=== PATIENT | female | born 1985 | race Caucasian/White ===

== ENCOUNTER 2019-01-29 12:56 | Observation (INO) | payer SELFPAY ==
[2019-01-29 13:54] LABS: Urine Blood 2+ (NEG); Urine Glucose NEGATIVE (NEG); Urine Protein 1+ (NEG); Urine Specific Gravity 1.025 (1.005-1.030)
[2019-01-29 14:01] LABS: Urine Bacteria 20-50 /HPF (<20)
[2019-01-29 14:02] LABS: Urine Culture Reflex Order NOT NEEDED; Urine Mucus 2+ /HPF (NONE SEEN)
[2019-01-29] MEDS ORDERED: NA CHLORIDE 0.9% 1,000 ML ONE (14:32)
[2019-01-29 14:46] LABS: Absolute Lymphocytes (CBC) 2.4 K/uL (0.7-4.9); Basophils % 0.2 % (0-1.3); Hematocrit 38.2 % (36.0-45.0); Lymphocytes % 18.7 % (15.3-44.8); MPV 8.6 fL (7.6-11.3); RBC Red Blood Cell Count 4.51 M/uL (3.86-4.86)
[2019-01-29 14:55] LABS: BUN Blood Urea Nitrogen 11 mg/dL (7-18); Bicarbonate 23 mmol/L (21-32); Glucose Level 91 mg/dL (74-106); Potassium 3.8 mmol/L (3.5-5.1); Sodium Level 141 mmol/L (136-145)
[2019-01-29] MEDS ORDERED: MORPHINE 4 MG/ML SYR ONE (15:28)
--- NOTE | 2019-01-29 16:07 | EDPHYS ---
Physician Documentation [facility] Name: Kirti Peña Age: 33 yrs Sex: Female : 1985 Arrival Date: 01/29/2019 Time: 12:59 Bed 13 Private MD: ED Physician Jean Claude Montague HPI: 01/29 15:13 This 33 yrs old Female presents to ER via Ambulatory with complaints of rn Vomiting. 15:13 The patient presents to the emergency department with nausea, vomiting, abdominal pain, rn of the suprapubic area. 15:21 Onset: The symptoms/episode began/occurred today. Possible causes: unknown. The rn symptoms are aggravated by nothing. The symptoms are alleviated by nothing. Severity of symptoms: At their worst the symptoms were moderate in the emergency department the symptoms are unchanged. The patient has not experienced similar symptoms in the past. The patient has not recently seen a physician. 15:22 Reports lower abd pain, began today, + nausea and vomiting, states has had tubal rn ligation. NO trauma. No vaginal bleeding.. 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 - Social history:: Smoking status: Patient uses tobacco products, smokes one-half pack cigarettes per day. - Ebola Screening: : No symptoms or risks identified at this time. - Family history:: not pertinent. - Hospitalizations: : No recent hospitalization is reported. ROS: 15:22 Constitutional: Negative for fever, chills, and weight loss, Eyes: Negative for injury, rn pain, redness, and discharge, Neck: Negative for injury, pain, and swelling, Cardiovascular: Negative for chest pain, palpitations, and edema, Respiratory: Negative for shortness of breath, cough, wheezing, and pleuritic chest pain, Abdomen/GI: Negative for diarrhea, and constipation, : Negative for injury, bleeding, discharge, and swelling, MS/Extremity: Negative for injury and deformity, Skin: Negative for injury, rash, and discoloration, Neuro: Negative for headache, weakness, numbness, tingling, and seizure. Exam: 15:22 Constitutional: This is a well developed, well nourished patient who is awake, alert, rn appears uncomfortable Head/Face: Normocephalic, atraumatic. ENT: MMM Cardiovascular: Regular rate and rhythm. No pulse deficits. Respiratory: Lungs have equal breath sounds bilaterally, clear to auscultation. No increased work of breathing, no retractions or nasal flaring. Abdomen/GI: soft, + suprapubic and RLQ tenderness, no rebound MS/ Extremity: Pulses equal, no cyanosis. Neurovascular intact. Full, normal range of motion. Equal circumference. Neuro: Awake and alert, GCS 15, oriented to person, place, time, and situation. Cranial nerves II-XII grossly intact. Motor strength 5/5 in all extremities. Sensory grossly intact. Cerebellar exam normal. Vital Signs: 13:03 BP 124 / 75; Pulse 96; Resp 18 S; Temp 97.6(TE); Pulse Ox 98% on R/A; Weight 108.86 kg aa5 (R); Height 5 ft. 9 in. (175.26 cm) (R); Pain 9/10; 13:58 BP 112 / 70; Pulse 83; Resp 18; Pulse Ox 98% on R/A; kj1 14:58 BP 115 / 80; Pulse 77; Resp 17; Pulse Ox 99% on R/A; Pain 9/10; rb1 15:51 BP 132 / 99; Pulse 98; Resp 18; Pulse Ox 100% on R/A; kj1 16:45 BP 121 / 83; Pulse 78; Resp 19; Temp 97.9(O); Pulse Ox 96% on R/A; rb1 17:22 BP 114 / 59; Pulse 76; Resp 19; Temp 98.0(O); Pulse Ox 97% on R/A; Pain 7/10; rb1 13:03 Body Mass Index 35.44 (108.86 kg, 175.26 cm) aa5 MDM: 13:18 Patient medically screened. snw 16:05 Differential diagnosis: Nonspecific abd pain, ectopic . Data reviewed: vital rn signs, nurses notes, lab test result(s), radiologic studies, ultrasound, and as a result, I will admit patient. Counseling: I had a detailed discussion with the patient and/or guardian regarding: the historical points, exam findings, and any diagnostic results supporting the discharge/admit diagnosis, lab results, radiology results, the need for further work-up and treatment in the hospital. Response to treatment: the patient's symptoms have markedly improved after treatment, and as a result, I will admit patient. Admission orders: after a detailed discussion of the patient's condition and case, the admit orders are written by me. ED course: Consulted with Dr. Lyle \T\ 1605, will come and eval patient for ectopic . . 01/29 13:20 Order name: Urine Culture [facility] 01/29 13:20 Order name: Urine Microscopic Only; Complete Time: 14:04 w 01/29 13:48 Order name: Urine Dipstick--Ancillary (enter results); Complete Time: 14:04 bd 01/29 13:48 Order name: Urine --Ancillary (enter results); Complete Time: 14:04 01/29 14:20 Order name: CBC with Diff; Complete Time: 15:12 rn 01/29 14:20 Order name: Basic Metabolic Panel; Complete Time: 15:12 rn 01/29 13:20 Order name: Urine Test (obtain specimen); Complete Time: 13:53 [facility] 01/29 13:20 Order name: Urine Dipstick-Ancillary (obtain specimen); Complete Time: 13:53 [facility] 01/29 14:20 Order name: IV Start; Complete Time: 14:34 rn 01/29 14:20 Order name: Abo/rh Typing; Complete Time: 15:43 rn 01/29 14:20 Order name: US Transvaginal Ob; Complete Time: 16:26 rn 01/29 15:02 Order name: Quantitative Hcg; Complete Time: 15:59 rn 01/29 14:20 Order name: Labs collected and sent; Complete Time: 14:30 rn 01/29 14:20 Order name: NPO; Complete Time: 14:30 rn 01/29 16:07 Order name: NPO; Complete Time: 16:17 rn Administered Medications: 14:34 Drug: NS 0.9% 1000 ml Route: IV; Rate: 1000 ml; Site: right antecubital; ss 15:33 Drug: morphine 4 mg Route: IVP; Site: right antecubital; rb1 15:48 Follow up: Response: No adverse reaction; Pain is decreased rb1 Disposition: 01/29/19 16:07 Hospitalization ordered by Candice Lyle for Observation. Preliminary diagnosis is Ectopic . - Bed requested for Telemetry/MedSurg (Inpatient). - Status is Observation. rb1 - Condition is Stable. - Problem is new. - Symptoms have improved. UTI on Admission? No Signatures: Dispatcher [employer] EDMS Magnolia Shin, SHEET ROCK APPLICATOR-C SHEET ROCK APPLICATOR-Csnw Jean Claude Montague MD MD rn Calderon, Audri, RN RN aa5 Brittney Van RN RN ss Edwina Fernando, COMMUNICATIONS TECH COMMUNICATIONS TECH rh1 Lisa Rubio, RN RN rb1 Corrections: (The following items were deleted from the chart) 15:23 15:22 Constitutional: Negative for fever, chills, and weight loss, Eyes: Negative for rn injury, pain, redness, and discharge, Neck: Negative for injury, pain, and swelling, Cardiovascular: Negative for chest pain, palpitations, and edema, Respiratory: Negative for shortness of breath, cough, wheezing, and pleuritic chest pain, Abdomen/GI: Negative for diarrhea, and constipation, MS/Extremity: Negative for injury and deformity, Skin: Negative for injury, rash, and discoloration, Neuro: Negative for headache, weakness, numbness, tingling, and seizure, rn 16:25 16:07 Hospitalization Ordered by Candice Lyle MD for Inpatient Admission. Preliminary rn diagnosis is Ectopic . Bed requested for Telemetry/MedSurg (Inpatient). Status is Inpatient Admission. Condition is Stable. Problem is new. Symptoms have improved. UTI on Admission? No. rn 17:25 16:25 01/29/2019 16:07 Hospitalization Ordered by Candice Lyle MD for Observation. rb1 Preliminary diagnosis is Ectopic . Bed requested for Telemetry/MedSurg (Inpatient). Status is Observation. Condition is Stable. Problem is new. Symptoms have improved. UTI on Admission? No. rn
--- NOTE | 2019-01-29 16:07 | ER ---
Nurse's Notes [facility] Name: Kirti Peña Age: 33 yrs Sex: Female : 1985 Arrival Date: 01/29/2019 Time: 12:59 Bed 13 Private MD: Diagnosis: Ectopic Presentation: 01/29 13:02 Presenting complaint: Patient states: abdominal pain and vomiting that began yesterday. aa5 Pt reports last void was "early this morning". Pt states "It hurts to bad to pee". Transition of care: patient was not received from another setting of care. Onset of symptoms was January 29, 2019. Risk Assessment: Do you want to hurt yourself or someone else? Patient reports no desire to harm self or others. Initial Sepsis Screen: Does the patient meet any 2 criteria? No. Patient's initial sepsis screen is negative. Does the patient have a suspected source of infection? No. Patient's initial sepsis screen is negative. Care prior to arrival: None. 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 - Social history:: Smoking status: Patient uses tobacco products, smokes one-half pack cigarettes per day. - Ebola Screening: : No symptoms or risks identified at this time. - Family history:: not pertinent. - Hospitalizations: : No recent hospitalization is reported. Screenin:10 Abuse screen: Denies threats or abuse. Nutritional screening: No deficits noted. rb1 Tuberculosis screening: No symptoms or risk factors identified. Fall Risk None identified. Assessment: 13:10 General: Appears in no apparent distress. comfortable, Behavior is calm, cooperative, rb1 Denies fever. Pain: Complains of pain in suprapubic area, right lower quadrant and left lower quadrant Pain currently is 9 out of 10 on a pain scale. Pain began 0100 this morning. Neuro: Level of Consciousness is awake, alert, obeys commands, Oriented to person, place, time, situation. Cardiovascular: Capillary refill < 3 seconds is brisk in bilateral fingers. Respiratory: Airway is patent Respiratory effort is even, unlabored, Respiratory pattern is regular, symmetrical. GI: Abdomen is pt. reports feeling bloated and says abdomen is distended. Reports nausea, vomiting. : No signs and/or symptoms were reported regarding the genitourinary system. Derm: Skin is pink, warm \\T\\ dry. 14:05 Reassessment: Patient appears in no apparent distress at this time. No changes from rb1 previously documented assessment. 15:00 Reassessment: Pt. is crying and feeling anxious about her test being rb1 positive. Family is at pt. bedside. US is at bedside. 15:36 Reassessment: Patient appears in no apparent distress at this time. Patient and/or rb1 family updated on plan of care and expected duration. Pain level reassessed. Patient is alert, oriented x 3, equal unlabored respirations, skin warm/dry/pink. Family at bedside. 16:35 Reassessment: Patient appears in no apparent distress at this time. No changes from rb1 previously documented assessment. 17:22 Reassessment: Patient appears in no apparent distress at this time. Patient and/or rb1 family updated on plan of care and expected duration. Pain level reassessed. Patient is alert, oriented x 3, equal unlabored respirations, skin warm/dry/pink. Gave report to Ephraim DelcidOcular Pathologist. Vital Signs: 13:03 BP 124 / 75; Pulse 96; Resp 18 S; Temp 97.6(TE); Pulse Ox 98% on R/A; Weight 108.86 kg aa5 (R); Height 5 ft. 9 in. (175.26 cm) (R); Pain 9/10; 13:58 BP 112 / 70; Pulse 83; Resp 18; Pulse Ox 98% on R/A; kj1 14:58 BP 115 / 80; Pulse 77; Resp 17; Pulse Ox 99% on R/A; Pain 9/10; rb1 15:51 BP 132 / 99; Pulse 98; Resp 18; Pulse Ox 100% on R/A; kj1 16:45 BP 121 / 83; Pulse 78; Resp 19; Temp 97.9(O); Pulse Ox 96% on R/A; rb1 17:22 BP 114 / 59; Pulse 76; Resp 19; Temp 98.0(O); Pulse Ox 97% on R/A; Pain 7/10; rb1 13:03 Body Mass Index 35.44 (108.86 kg, 175.26 cm) aa5 ED Course: 12:59 Patient arrived in ED. as 13:01 Arm band placed on. aa5 13:02 Triage completed. aa5 13:10 Patient has correct armband on for positive identification. Bed in low position. Call rb1 light in reach. Side rails up X 1. Pulse ox on. NIBP on. Warm blanket given. 13:14 Lisa Rubio, RN is Primary Nurse. rb1 13:18 Magnolia Shin FNP-C is PHCP. snw 13:18 Jean Claude Montague MD is Attending Physician. snw 14:03 PHCP role handed off by Magnolia Shin FNP-C rh1 14:03 Edwina Fernando NP is PHCP. rh1 14:29 Inserted saline lock: 20 gauge in right antecubital area, using aseptic technique. ss Blood collected. 15:19 US Transvaginal Ob In Process Unspecified. EDMS 15:54 Ultrasound completed. Patient tolerated well. Notified ED Physician elida. sg3 16:06 Candice Lyle MD is Hospitalizing Provider. rn 17:25 No provider procedures requiring assistance completed. Patient admitted, IV remains in rb1 place. Administered Medications: 14:34 Drug: NS 0.9% 1000 ml Route: IV; Rate: 1000 ml; Site: right antecubital; ss 15:33 Drug: morphine 4 mg Route: IVP; Site: right antecubital; rb1 15:48 Follow up: Response: No adverse reaction; Pain is decreased rb1 Outcome: 16:07 Decision to Hospitalize by Provider. rn 17:25 Admitted to OR accompanied by nurse, via wheelchair, with chart. rb1 17:25 Condition: stable 17:25 Instructed on the need for admit. 17:25 Patient left the ED. rb1 Signatures: Dispatcher [employer] EDMS Magnolia Shin FNP-C ROOF FOREMAN-CsnClarisse Collins as Jean Claude Montague MD MD rn Calderon, Audri, RN RN aa5 Brittney Van RN RN ss Edwina Fernando NP BISQUE PLACER rh1 Lisa Rubio, VICKEY HURD [facility] Ayla Taylor sg3 Princess Moran kj1 Corrections: (The following items were deleted from the chart) 15:08 15:00 Reassessment: Pt. is crying and feeling anxious about her test being rb1 positive. rb1
--- NOTE | 2019-01-29 16:19 | RAD REPORT ---
EXAM DESCRIPTION: US - Transvaginal OB - 01/29/2019 3:41 pm CLINICAL HISTORY: s/p tubal ligation, + preg test, rule out ectopic beta HCG [id number] COMPARISON: None. TECHNIQUE: Endovaginal sonography was performed. Exam was limited. Patient was in pain which limited optimal positioning FINDINGS: No intrauterine gestational sac or sac remnant identifiable. No hematoma or other focal fi nding within the endometrial cavity. No blood or fluid in the cul de sac. Left ovary was not identifiable. No left adnexal mass seen. Within or adjacent to the right ovary there is a 2.4 x 2.5 x 2.6 centimeter mass. There is an irregul ar central cystic structure. Within this larger cystic structure is a small oval cyst that has the ap pearance of the yolk sac. Adjacent to the yolk sac is a small linear echogenic focus having the appea keesha of an early pole. Doppler evaluation shows prominent enhancing vasculature around the per iphery of this 2.6 centimeter right ovarian or paraovarian mass. Doppler evaluation could not identif y cardiac activity within the suspected pole. No fallopian tube dilatation. IMPRESSION: As detailed above, there is a 2.6 centimeter right ovarian or paraovarian mass showing c haracteristics of an ectopic . No blood or fluid identifiable in the right adnexa or cul-de-sac. No intrauterine gestational sac or sac remnant seen. Left ovary was obscured by bowel. Overall both adnexae were limited in assessment due to patient pain that limited her ability to cooperate with the exam
[2019-01-29] MEDS ORDERED: SUCCINYLCHOLINE 20 MG/ML (10 ML) IV ONE (17:41)
[2019-01-29] MEDS ORDERED: NA CIT/CITRIC AC 30 ML ORAL UDC ONE (17:43)
[2019-01-29] MEDS ORDERED: Ringers Lactate 1,000 ML IV ONE ×2 (17:43→19:51)
--- NOTE | 2019-01-29 17:54 | P.OBGYNHP ---
Certification for Inpatient Patient admitted to: Observation With expected LOS: <2 Midnights Patient will require the following post-hospital care: None Practitioner: I am a practitioner with admitting privileges, knowledge of patient current condition, hospital course, and medical plan of care. Services: Services provided to patient in accordance with Admission requirements found in Title 42 Section 412.3 of the Code of Federal Regulations Patient History Date of Service: 01/31/19 Reason for admission: Ruptured ectopic History of Present Illness: Patient is a 33 y/o LMP about one month ago who presents to the ED with sudden onset of pain and a missed menses. She states that she began feeling very nauseated this morning and then threw up a bile like substance which made her feel she may be since that is how she felt with her past pregnancies. Patient states then the pain began mostly in the suprapubic and right lower quadrant area. Patient states this is what caused her to present to the ED. She has h/o 3 prior sections and during her last c/s she had a bilateral tubal ligation done as well. 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 -: section x3 and tubal ligation -: tonsillectomy - Family History Family History: Reviewed- Non-Contributory - Social History Smoking Status: Current every day smoker Alcohol use: No Review of Systems 10-point ROS is otherwise unremarkable Physical Examination - Vital Signs Temperature: 98 F Blood Pressure: 114/59 Pulse: 76 Respirations: 18 Pulse Ox (%): 97 - General General: Alert, Oriented x3 HEENT: Atraumatic Neck: Supple Respiratory: Normal air movement Cardiovascular: No edema, Normal pulses Musculoskeletal: No clubbing, No swelling Integumentary: No breakdown, No significant lesion Neurological: Normal gait, Normal speech - Female Pelvic External genitalia: Normal, No lesions, No masses Vagina: Normal, [place], Moist Cervix: Normal, Other (very high in vaginal vault) Uterus: Gravid (8 weeks size), Anteverted Adnexa: Unable to evaluate Laboratory Data (last 24 hrs) 01/29/19 14:27: Sodium 141, Potassium 3.8, BUN 11, Creatinine 0.70, Glucose 91 01/29/19 14:27: WBC 12.9 H, Hgb 13.0, Hct 38.2, Plt Count 290 Laboratory Tests 01/29/19 14:27 Beta HCG, Quant 70077 H Assessment and Plan - Plan Patient is a 33 y/o LMP about one month ago who presents with ruptured ectopic . Patient will be taken to the operating room for laparoscopic treatment of ectopic . Patient understand risks. She has consented to procedure. Discussed with patient the possibility of needed laparotomy especially with her h/o 3 prior sections. Discussed with patient that if it is possible I will perform bilateral salpingectomy. Patient agrees. Discharge Plan: Home Plan to discharge in: 24 Hours - Advance Directives Does patient have a Living Will: No Does patient have a Durable POA for Healthcare: No
[2019-01-29] MEDS ORDERED: IBUPROFEN 200 MG TAB PO PRN (19:53)
[2019-01-29] MEDS ORDERED: ONDANSETRON 4 MG (ODT) TAB PO PRN (19:53)
[2019-01-29] MEDS ORDERED: ACETAMINOPHEN 500 MG TAB PO PRN (19:53)
--- NOTE | 2019-01-29 19:54 | P.OP ---
Scheduling Manager: Gail Barrios Preoperative diagnosis: Ruptured ectopic Postoperative diagnosis: same and extensive adhesions Primary procedure: Diagnostic laparoscopy, evacuation of hemoperitoneum, right salpingectomy Anesthesia: General Estimated blood loss: Minimal, 800 cc of blood within the abdominal cavity present from ectopic Specimen: Right fallopian tube Findings: large right ectopic , extensive abdominal adhesions Operative Technique: On bimanual exam, the patient has an average size anteverted uterus, it is freely mobile. Laparoscopically, the patient had numerous omental adhesions to the vesicouterine peritoneum on the left side of the uterus. . There was a copious amount of blood in the abdomen approximately 800 cc of clotted and unclotted blood. There was an apparent rupture and bleeding ectopic in the isthmus portion of the right fallopian tube. PROCEDURE: After an informed consent was obtained, the patient was taken to the operating room and the general anesthetic was administered. She was then positioned in the dorsal lithotomy position and prepped and draped in the normal sterile fashion. Once the anesthetic was found to be adequate, a bimanual exam was performed under anesthetic. A weighted speculum was then placed in the vagina. The interior wall of vagina elevated with the uterine sound and the anterior lip of the cervix was grasped with the vulsellum tenaculum. At this point, the uterine manipulator was placed in the cervix and attached to the anterior cervix and vulsellum tenaculum and weighted speculum were removed. Next, attention was then turned to the abdomen. Next, a 2 cm incision was made immediately inferior to umbilicus. The superior aspect of the umbilicus was grasped with a towel clamp and a Veress needle was inserted through this incision. Next, a syringe was used to inject normal saline into the Veress needle. The normal saline was seen to drop freely, so a Veress needle was connected to the CO2 gas which was started at its lowest setting. The gas was seen to flow freely with normal resistance, so the CO2 gas was advanced to a higher setting. The abdomen was insufflated to an adequate distension. Once an adequate distention was reached, the CO2 gas was disconnected. The Veress needle was removed and a size #11 step trocar was placed. The introducer was removed and the trocar was connected to the CO2 gas and a camera was inserted. Next, a 1 cm incision was made in the right abdominal side wall after transilluminating with the camera. A Veress needle and a step sheath were inserted through this incision. Next, the Veress needle was removed and a size #5 trocar was inserted under direct visualization. Next a size #5 port was placed approximately five fingerbreadths to the left of the umbilicus in a similar fashion. A size #5 port was placed in a similar fashion approximately six fingerbreadths to the right of the umbilicus and also under direct visualization. Next, the suction healthcare network consultant was used to copiously irrigate the abdomen. Approximate total of 1 liter of irrigation was used and the majority of all blood clots and free blood was removed from the abdomen. Once the majority of blood was cleaned from the abdomen, the ectopic was easily identified and the end of the fallopian tube was grasped with the grasper from the left upper quadrant and the LigaSure device was then inserted through the right upper quadrant with # 12 port. Three bites with the LigaSure device were used to transect the mesosalpinx inferior to the fallopian tube and then transect the fallopian tube proximal to the ectopic . An EndoCatch bag was then placed to the size #12 port and this was used to remove the right fallopian tube and ectopic . This was then sent to the pathology. Next, the right mesosalpinx and remains of the fallopian tube were examined again and they were seemed to be hemostatic. The abdomen was further irrigated. The liver was examined and appeared to be within normal limits. At this point, the two size #5 ports and a size #12 port were removed under direct visualization. The camera was then removed. The CO2 gas was disconnected and the abdomen was desufflated. The introducer was then replaced in a size #11 port and the whole port and introducer was removed as a single unit. All laparoscopic incisions were closed with a #4-0 monocryl in a subcuticular interrupted fashion. Dermabond was placed. At the end of the procedure, the uterine manipulator was removed from the cervix and the patient was taken to Recovery in stable condition. The patient tolerated the procedure well. Sponge, lap, and needle counts were correct x2. Complications: None Transferred to: Recovery Room Condition: Good
[2019-01-29] MEDS ORDERED: MEPERIDINE HCL 25 MG/0.5 ML ONE (20:00)
[2019-01-29] MEDS ORDERED: ONDANSETRON 4 MG/2 ML VIAL ONE (20:04)
[2019-01-29] MEDS ORDERED: KETOROLAC 30 MG/ML INJ IV PRN (20:09)
[2019-01-29] MEDS: HYDROMORPHONE HCL 1 MG/ML INJ ONE ×2 (20:13→20:27)
[2019-01-29 20:44] VITALS: O2SAT 95
[2019-01-29 21:48] VITALS: BMI 35.4
[2019-01-30] MEDS: Oxycodone HCl/Acetaminophen 1 TAB TAB PO PRN ×2 (04:33→09:57)
[2019-01-30 06:21] LABS: Absolute Lymphocytes (CBC) 0.9 K/uL (0.7-4.9); Basophils % 0.1 % (0-1.3); Hematocrit 31.3 % (36.0-45.0); Lymphocytes % 6.9 % (15.3-44.8); MPV 8.8 fL (7.6-11.3); RBC Red Blood Cell Count 3.71 M/uL (3.86-4.86)
[2019-01-30 07:25] LABS: Blood Morphology Comment NOT SEEN (NOT SEEN); Platelet Estimate ADEQ
--- NOTE | 2019-01-30 10:39 | P.DS ---
Admission Date: 01/29/19 Discharge Date: 01/30/19 Disposition: ROUTINE DISCHARGE Discharge Condition: GOOD Reason for Admission: Ruptured ectopic Brief History of Present Illness: Patient is a 33 y/o LMP about one month ago who presents to the ED with sudden onset of pain and a missed menses. She states that she began feeling very nauseated this morning and then threw up a bile like substance which made her feel she may be since that is how she felt with her past pregnancies. Patient states then the pain began mostly in the suprapubic and right lower quadrant area. Patient states this is what caused her to present to the ED. She has h/o 3 prior sections and during her last c/s she had a bilateral tubal ligation done as well. Hospital Course: Patient did well following surgery. She denies pain. She is ambulating. She is tolerating a regular diet. She is not vomiting any longer. She states she feels much better. Vital Signs/Physical Exam: Temp Pulse Resp BP Pulse Ox 97.4 F 53 18 95/49 L 97 01/30/19 07:30 01/30/19 07:30 01/30/19 07:30 01/30/19 07:30 01/30/19 04:33 General: Alert, In no apparent distress, Oriented x3 HEENT: Atraumatic Neck: Supple Respiratory: Normal air movement Gastrointestinal: Soft and benign, Rebound (Incision sites are closed with dermabond and healing well.) Musculoskeletal: No clubbing, No swelling Integumentary: No rashes, No breakdown Neurological: Normal gait, Normal speech Laboratory Data at Discharge: WBC 13.4 K/uL (4.3-10.9) H 01/30/19 05:45 Hgb 10.7 g/dL (12.0-15.0) L 01/30/19 05:45 Hct 31.3 % (36.0-45.0) L D 01/30/19 05:45 Plt Count 254 K/uL (152-406) 01/30/19 05:45 Sodium 141 mmol/L (136-145) 01/29/19 14:27 Potassium 3.8 mmol/L (3.5-5.1) 01/29/19 14:27 BUN 11 mg/dL (7-18) 01/29/19 14:27 Creatinine 0.70 mg/dL (0.55-1.3) 01/29/19 14:27 Glucose 91 mg/dL (74-106) 01/29/19 14:27 Diet: Regular Activity: Non-weight bearing
[2019-01-31 11:38] VITALS: BP 114/59; TEMP 98
== END 2019-01-30 10:30 | disposition home or self-care (01) ==
LOC: ER 12:56 → ERHOLD 16:46 → 2ND-WC 19:33
PROVIDERS: ADMIT Student in an Organized Health Care Education/Training Program; ATTEND Student in an Organized Health Care Education/Training Program
PROC: 0UT54ZZ Resection of Right Fallopian Tube, Percutaneous Endoscopic Approach (ICD-10-PCS; 2019-01-29)
PROC: 10T24ZZ Resection of Products of Conception, Ectopic, Percutaneous Endoscopic Approach (ICD-10-PCS; principal; 2019-01-29 17:30)
DX: O00.90 Unspecified ectopic pregnancy without intrauterine pregnancy (principal); K66.0 Peritoneal adhesions (postprocedural) (postinfection)
CPT/HCPCS: 36415; 76817; 80048; 81003; 81015; 81025; 84702; 85025; 86900; 86901; 87086; 87088; 88305; 96374; 99285; G0378; J0330; J1170; J2175; J2405; J7030

== ENCOUNTER 2019-02-18 11:00 | Emergency (ER) | payer SELFPAY ==
[2019-02-18 11:39] LABS: Urine Blood NEGATIVE (NEG); Urine Glucose NEGATIVE (NEG); Urine Protein NEGATIVE (NEG); Urine pH 7.5 (5.0-7.0)
[2019-02-18 11:45] LABS: Absolute Lymphocytes (CBC) 2.8 K/uL (0.7-4.9); Basophils % 0.6 % (0-1.3); Hematocrit 36.8 % (36.0-45.0); Lymphocytes % 28.5 % (15.3-44.8); MPV 8.4 fL (7.6-11.3); RBC Red Blood Cell Count 4.37 M/uL (3.86-4.86)
[2019-02-18 11:51] LABS: BUN Blood Urea Nitrogen 12 mg/dL (7-18); Bicarbonate 27 mmol/L (21-32); Glucose Level 89 mg/dL (74-106); Sodium Level 142 mmol/L (136-145)
--- NOTE | 2019-02-18 12:23 | RAD REPORT ---
EXAM DESCRIPTION: CT - Abdomen Pelvis W Contrast - 02/18/2019 12:10 pm CLINICAL HISTORY: ABD PAINpatient detailed acute onset pain following a lifting injury. Patient had ectopic surgery 3 weeks earlier COMPARISON: None. TECHNIQUE: Biphasic, helical CT imaging of the abdomen and pelvis was performed following 100 ml non -ionic IV contrast. No oral contrast. All CT scans are performed using dose optimization technique as appropriate and may include automated exposure control or mA/KV adjustment according to patient size. FINDINGS: No suspicious findings in the lung bases. The liver, spleen, and pancreas show no suspicious findings. Gallbladder and biliary tree are also wi thout suspicious finding. Symmetric renal function is seen with no hydronephrosis or suspicious renal mass. No pyelonephritis o r acute parenchymal process. No adrenal abnormalities. Patient has a moderate size hiatal hernia only partially imaged on this study. Approximately 25% of t he stomach is intrathoracic. No acute bowel finding seen. No free fluid or pneumatosis. No focal infl ammatory stranding. No bulky lymphadenopathy. No omental thickening. No suspicious bony findings. No uterine or ovarian suspicious finding. No fallopian tube dilatation. Mostly contracted urinary makenna dder shows no suspicious finding. Within the peritoneal and retroperitoneal spaces of the pelvis ther e is no hematoma or mass. No abscess or other finding related to the ectopic surgery. The p atient has anterior abdominal wall is intact. Patient does have a few punctate areas of free air. The se are not associated with any active process and believed to be small remnant foci from the surgery. These are not regarded as suspicious. No abdominal wall hernia or hematoma seen. IMPRESSION: No abdominal wall hernia or hematoma. No abnormal pelvic finding. No abnormality seen to explain the patient's acute onset suprapubic pain.
--- NOTE | 2019-02-18 12:34 | ER ---
Nurse's Notes [facility] Name: Kirti Peña Age: 33 yrs Sex: Female : 1985 Arrival Date: 02/18/2019 Time: 11:04 Bed 13 Private MD: None, None Diagnosis: Lower abdominal pain, unspecified Presentation: 02/18 11:07 Presenting complaint: Patient states: "I've been having some pain. I was here 3 weeks aj1 ago and had an ectopic and I had to have emergency surgery, I lifted something heavy up today and I felt a pain and i just wanted to make sure I didn't mess anything up" Denies vaginal bleeding, discharge. Reports suprapubic pain. Denies fever. Denies urinary symptoms. Transition of care: patient was not received from another setting of care. Onset of symptoms was February 18, 2019. Risk Assessment: Do you want to hurt yourself or someone else? Patient reports no desire to harm self or others. Initial Sepsis Screen: Does the patient meet any 2 criteria? No. Patient's initial sepsis screen is negative. Does the patient have a suspected source of infection? No. Patient's initial sepsis screen is negative. Care prior to arrival: None. 11:07 Method Of Arrival: Ambulatory aj1 11:07 Acuity: FRANCO 3 aj1 Triage Assessment: 11:09 General: Appears in no apparent distress. uncomfortable, Behavior is calm, cooperative, aj1 appropriate for age. Pain: Complains of pain in suprapubic area Pain currently is 8 out of 10 on a pain scale. Neuro: Level of Consciousness is awake, alert, obeys commands. Cardiovascular: Patient's skin is warm and dry. Respiratory: Airway is patent Respiratory effort is even, unlabored, Respiratory pattern is regular, symmetrical. GI: Reports lower abdominal pain. 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 - Social history:: Smoking status: Patient uses tobacco products, smokes one-half pack cigarettes per day. - Ebola Screening: : Patient denies travel to an Ebola-affected area in the 21 days before illness onset. Screenin:30 Abuse screen: Denies threats or abuse. Denies injuries from another. Nutritional jl7 screening: No deficits noted. Tuberculosis screening: No symptoms or risk factors identified. Fall Risk IV access (20 points). Total Chew Fall Scale indicates No Risk (0-24 pts). Assessment: 11:30 General: Appears in no apparent distress. uncomfortable, Behavior is calm, cooperative, jl7 appropriate for age. Pain: Complains of pain in suprapubic area Pain does not radiate. Pain currently is 8 out of 10 on a pain scale. Quality of pain is described as sharp, shooting, Is intermittent. Neuro: Level of Consciousness is awake, alert, obeys commands, Oriented to person, place, time, situation. Cardiovascular: Patient's skin is warm and dry. Respiratory: Airway is patent Respiratory effort is even, unlabored, Respiratory pattern is regular, symmetrical. GI: Abdomen is round non-distended, Bowel sounds present X 4 quads. Abd is soft and non tender Patient currently denies diarrhea, nausea, vomiting. : No signs and/or symptoms were reported regarding the genitourinary system. EENT: No signs and/or symptoms were reported regarding the EENT system. Derm: Skin is pink, warm \\T\\ dry. 12:30 Reassessment: Patient appears in no apparent distress at this time. No changes from jl7 previously documented assessment. Patient and/or family updated on plan of care and expected duration. Pain level reassessed. Patient is alert, oriented x 3, equal unlabored respirations, skin warm/dry/pink. Vital Signs: 11:09 BP 129 / 62; Pulse 96; Resp 18; Temp 97.9; Pulse Ox 98% on R/A; Weight 111.58 kg (R); aj1 Height 5 ft. 9 in. (175.26 cm) (R); Pain 8/10; 12:30 BP 128 / 63; Pulse 95; Resp 16 S; Pulse Ox 100% on R/A; jl7 11:09 Body Mass Index 36.33 (111.58 kg, 175.26 cm) aj1 ED Course: 11:04 Patient arrived in ED. mr 11:05 None, None is Private Physician. mr 11:05 [facility]C [facility]. kb 11:05 Jean Claude Montague MD is Attending Physician. kb 11:09 Triage completed. aj1 11:09 Arm band placed on Patient placed in an exam room. aj1 11:21 Omer Bullard, RN is Primary Nurse. jl7 11:30 Patient has correct armband on for positive identification. Bed in low position. Call jl7 light in reach. Side rails up X 1. Pulse ox on. NIBP on. 11:30 Initial lab(s) drawn, by me, sent to lab. Inserted saline lock: 22 gauge in right jl7 antecubital area, using aseptic technique. Blood collected. 11:34 Urine collected: clean catch specimen, clear. jl7 12:14 CT Abd/Pelvis - IV Contrast Only In Process Unspecified. EDMS 12:45 No provider procedures requiring assistance completed. IV discontinued, intact, jl7 bleeding controlled, No redness/swelling at site. Pressure dressing applied. Administered Medications: No medications were administered Outcome: 12:34 Discharge ordered by . kb 12:45 Discharged to home ambulatory, with family. jl7 12:45 Condition: stable 12:45 Discharge instructions given to patient, family, Instructed on discharge instructions, follow up and referral plans. Demonstrated understanding of instructions, follow-up care. 12:45 Patient left the ED. jl7 Signatures: Dispatcher [employer] EDMS Dana Moran FNP-C FNP-Vickie Alvarenga, RN RN Glenny Pack mr Omer Bullard, RN RN jl7
--- NOTE | 2019-02-18 12:35 | EDPHYS ---
Physician Documentation [facility] Name: Kirti Peña Age: 33 yrs Sex: Female : 1985 Arrival Date: 02/18/2019 Time: 11:04 Bed 13 Private MD: None, None ED Physician Jean Claude Montague HPI: 02/18 11:37 This 33 yrs old Female presents to ER via Ambulatory with complaints of kb Abdominal Pain. 11:37 The patient presents with abdominal pain in the lower abdomen. Onset: The kb symptoms/episode began/occurred this morning. The symptoms do not radiate. Associated signs and symptoms: none. The symptoms are described as constant. Modifying factors: The symptoms are alleviated by nothing, the symptoms are aggravated by nothing. Severity of pain: At its worst the pain was moderate in the emergency department the pain is unchanged. The patient has not experienced similar symptoms in the past. The patient has been recently seen by a physician:. Pt reports suprapubic and RLQ pain that started after lifting a heavy box this morning. Recent ectopic on the right with surgical intervention. . 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 - Social history:: Smoking status: Patient uses tobacco products, smokes one-half pack cigarettes per day. - Ebola Screening: : Patient denies travel to an Ebola-affected area in the 21 days before illness onset. ROS: 11:34 Constitutional: Negative for fever, chills, and weight loss, ENT: Negative for injury, kb pain, and discharge, Neck: Negative for injury, pain, and swelling, Cardiovascular: Negative for chest pain, palpitations, and edema, Respiratory: Negative for shortness of breath, cough, wheezing, and pleuritic chest pain, Back: Negative for injury and pain, : Negative for injury, bleeding, discharge, and swelling, MS/Extremity: Negative for injury and deformity, Skin: Negative for injury, rash, and discoloration, Neuro: Negative for headache, weakness, numbness, tingling, and seizure. 11:34 Abdomen/GI: Positive for abdominal pain. Exam: 11:35 Constitutional: This is a well developed, well nourished patient who is awake, alert, kb and in no acute distress. Head/Face: Normocephalic, atraumatic. ENT: Nares patent. No nasal discharge, no septal abnormalities noted. Tympanic membranes are normal and external auditory canals are clear. Oropharynx with no redness, swelling, or masses, exudates, or evidence of obstruction, uvula midline. Mucous membranes moist. Neck: Trachea midline, no thyromegaly or masses palpated, and no cervical lymphadenopathy. Supple, full range of motion without nuchal rigidity, or vertebral point tenderness. No Meningismus. Chest/axilla: Normal chest wall appearance and motion. Nontender with no deformity. No lesions are appreciated. Cardiovascular: Regular rate and rhythm with a normal S1 and S2. No gallops, murmurs, or rubs. Normal PMI, no JVD. No pulse deficits. Respiratory: Lungs have equal breath sounds bilaterally, clear to auscultation and percussion. No rales, rhonchi or wheezes noted. No increased work of breathing, no retractions or nasal flaring. Skin: Warm, dry with normal turgor. Normal color with no rashes, no lesions, and no evidence of cellulitis. MS/ Extremity: Pulses equal, no cyanosis. Neurovascular intact. Full, normal range of motion. Neuro: Awake and alert, GCS 15, oriented to person, place, time, and situation. Cranial nerves II-XII grossly intact. Motor strength 5/5 in all extremities. Sensory grossly intact. Cerebellar exam normal. Normal gait. 11:35 Abdomen/GI: Inspection: abdomen appears normal, healing surgical incisions to RLQ and umbilicus, Bowel sounds: normal, in all quadrants, Palpation: soft, in all quadrants, moderate abdominal tenderness, in the suprapubic area and right lower quadrant. Vital Signs: 11:09 BP 129 / 62; Pulse 96; Resp 18; Temp 97.9; Pulse Ox 98% on R/A; Weight 111.58 kg (R); aj1 Height 5 ft. 9 in. (175.26 cm) (R); Pain 8/10; 12:30 BP 128 / 63; Pulse 95; Resp 16 S; Pulse Ox 100% on R/A; jl7 11:09 Body Mass Index 36.33 (111.58 kg, 175.26 cm) aj1 MDM: 11:11 Patient medically screened. kb 11:34 Data reviewed: vital signs, nurses notes. Data interpreted: Pulse oximetry: on room air kb is 98 %. Interpretation: normal. 12:33 Counseling: I had a detailed discussion with the patient and/or guardian regarding: the kb historical points, exam findings, and any diagnostic results supporting the discharge/admit diagnosis, lab results, radiology results, the need for outpatient follow up, an OB/Gyne specialist, to return to the emergency department if symptoms worsen or persist or if there are any questions or concerns that arise at home. 02/18 11:14 Order name: Basic Metabolic Panel; Complete Time: 11:52 kb 02/18 11:14 Order name: CBC with Diff; Complete Time: 12:02 kb 02/18 11:19 Order name: Quantitative Hcg; Complete Time: 11:59 eb 02/18 11:27 Order name: Urine Dipstick--Ancillary (enter results); Complete Time: 11:41 eb 02/18 11:27 Order name: Urine --Ancillary (enter results); Complete Time: 11:41 eb 02/18 12:00 Order name: CT Abd/Pelvis - IV Contrast Only; Complete Time: 12:33 kb 02/18 11:14 Order name: IV Saline Lock; Complete Time: 11:33 kb 02/18 11:14 Order name: Labs collected and sent; Complete Time: 11:33 kb 02/18 11:14 Order name: Urine Dipstick-Ancillary (obtain specimen); Complete Time: 11:33 kb 02/18 11:14 Order name: Urine Test (obtain specimen); Complete Time: 11:33 kb Administered Medications: No medications were administered Disposition: 18:29 Co-signature as Attending Physician, Jean Claude Montague MD. rn Disposition: 02/18/19 12:34 Discharged to Home. Impression: Lower abdominal pain, unspecified. - Condition is Stable. - Discharge Instructions: Abdominal Pain, Adult, [id number]. - Medication Reconciliation Form, Thank You Letter, Antibiotic Education, Prescription Opioid Use, Work release form form. - Follow up: Emergency Department; When: As needed; Reason: Worsening of condition. Follow up: Private Physician; When: 2 - 3 days; Reason: Recheck today's complaints, Continuance of care, Re-evaluation by your physician. Signatures: Dispatcher [employer] Dana Branch, DILIA HUDSONP-Vickie Alvarenga, RN RN aj1 Jean Claude Montague MD MD rn Leal, Jahala, RN RN jl7 Corrections: (The following items were deleted from the chart) 11:37 11:35 Abdomen/GI: Inspection: abdomen appears normal, Bowel sounds: normal, in all kb quadrants, Palpation: soft, in all quadrants, moderate abdominal tenderness, in the suprapubic area and right lower quadrant, kb 12:45 12:34 02/18/2019 12:34 Discharged to Home. Impression: Lower abdominal pain, jl7 unspecified. Condition is Stable. Forms are Medication Reconciliation Form, Thank You Letter, Antibiotic Education, Prescription Opioid Use. Follow up: Emergency Department; When: As needed; Reason: Worsening of condition. Follow up: Private Physician; When: 2 - 3 days; Reason: Recheck today's complaints, Continuance of care, Re-evaluation by your physician. kb
[2019-02-18 13:01] VITALS: TEMP 97.9
[2019-02-18 13:03] VITALS: BP 128/63; O2SAT 100
== END 2019-02-18 12:45 | disposition home or self-care (01) ==
LOC: ER 11:00
DX: R10.31 Right lower quadrant pain (principal); F17.210 Nicotine dependence, cigarettes, uncomplicated; Z88.0 Allergy status to penicillin
CPT/HCPCS: 36415; 74177; 80048; 81003; 81025; 84702; 85025; 99284; Q9967

== ENCOUNTER 2019-11-09 11:45 | Emergency (ER) | payer SELFPAY, OTHER ==
--- OUTSIDE RECORDS SUMMARY | 2019-11-09 11:48 | XMS REPORT | Continuity of Care Document ---
:1985 Author Organization [facility] t Address [address] [place] [place] [address] Care Team Providers Name Role Phone Unavailable Unavailable Unavailable Problems This patient has no known problems. Allergies, Adverse Reactions, Alerts This patient has no known allergies or adverse reactions. Medications This patient has no known medications. Procedures This patient has no known procedures. Results This patient has no known results.
[2019-11-09] MEDS ORDERED: ONDANSETRON 4 MG (ODT) TAB ONE (14:26)
[2019-11-09 15:10] LABS: Urine Blood NEGATIVE (NEG); Urine Glucose NEGATIVE (NEG); Urine Protein NEGATIVE (NEG); Urine Specific Gravity 1.025 (1.005-1.030)
--- NOTE | 2019-11-09 15:42 | EDPHYS ---
Physician Documentation [facility] Name: Kirti Peña Age: 34 yrs Sex: Female : 1985 Arrival Date: 11/09/2019 Time: 11:47 Bed 20 Private MD: ED Physician Davy Chang HPI: 11/08 13:45 This 34 yrs old Female presents to ER via Ambulatory with complaints of cp Vomiting/Diarrhea, r/o covid. 13:45 The patient presents to the emergency department with nausea, that is mild, vomiting, cp that is intermittent, diarrhea, that is intermittent. 13:45 Onset: The symptoms/episode began/occurred yesterday. cp 13:45 Possible causes: unknown. cp 13:45 Severity of symptoms: in the emergency department the symptoms are unchanged despite cp home interventions. Historical: - Allergies: 12:17 PENICILLINS; ss - PSHx: 12:17 ; surgery for ectopic ; ss - Immunization history:: Adult Immunizations up to date. - Social history:: Smoking status: Patient reports the use of cigarette tobacco products, smokes one-half pack cigarettes per day. ROS: 13:50 Constitutional: Positive for chills, Negative for body aches, fever, poor PO intake. cp 13:50 Eyes: Negative for injury, pain, redness, and discharge. cp 13:50 Respiratory: Positive for cough, Negative for shortness of breath, wheezing. cp 13:50 Abdomen/GI: Positive for nausea and vomiting, diarrhea, Negative for constipation. 13:50 Skin: Negative for rash. 13:50 ENT: Positive for sore throat, Negative for drainage from ear(s), ear pain, difficulty cp swallowing, difficulty handling secretions. 13:50 All other systems are negative. Exam: 14:00 Constitutional: The patient appears in no acute distress, alert, awake, non-toxic, well cp developed, well nourished. 14:00 Head/Face: Normocephalic, atraumatic. cp 14:00 Eyes: Periorbital structures: appear normal, Conjunctiva: normal, no exudate, no injection, Lids and lashes: appear normal, bilaterally. 14:00 ENT: External ear(s): are unremarkable, Ear canal(s): are normal, clear, TM's: bulging, is not appreciated, bilaterally, dullness, bilaterally, erythema, is not appreciated, bilaterally, Nose: is normal, Mouth: Lips: moist, Oral mucosa: moist, Posterior pharynx: Airway: no evidence of obstruction, patent, Tonsils: no enlargement, no exudate, erythema, that is mild, exudate, is not appreciated. 14:00 Neck: ROM/movement: is normal, is supple, no meningismus, no nuchal rigidity, Lymph nodes: no appreciated lymphadenopathy. 14:00 Chest/axilla: Inspection: normal, Palpation: is normal, no crepitus, no tenderness. 14:00 Cardiovascular: Rate: normal, Rhythm: regular. 14:00 Respiratory: the patient does not display signs of respiratory distress, Respirations: normal, no use of accessory muscles, no retractions, labored breathing, is not present, Breath sounds: are clear throughout, no decreased breath sounds, no stridor, no wheezing. 14:00 Abdomen/GI: Inspection: abdomen appears normal, Bowel sounds: active, all quadrants, Palpation: soft, in all quadrants, mild abdominal tenderness, in the right lower quadrant and left lower quadrant, rebound tenderness, is not appreciated, voluntary guarding, is not appreciated, involuntary guarding, is not appreciated. Vital Signs: 12:15 BP 126 / 94; Pulse 79; Resp 15; Temp 98.5(TE); Pulse Ox 99% on R/A; Weight 108.86 kg; ss Height 5 ft. 10 in. (177.80 cm); 14:00 BP 128 / 74; Pulse 78; Resp 16; Temp 98.4(O); Pulse Ox 99% on R/A; Pain 0/10; ls4 15:00 BP 122 / 72; Pulse 71; Resp 18; Pulse Ox 99% on R/A; Pain 0/10; ls4 16:00 BP 129 / 80; Pulse 70; Resp 18; Pulse Ox 99% on R/A; Pain 0/10; ls4 12:15 Body Mass Index 34.44 (108.86 kg, 177.80 cm) ss MDM: 13:18 Patient medically screened. cp 14:00 Differential diagnosis: gastritis, viral gastroenteritis, gastroenteritis, influenza, cp strep throat, COVID-19. 15:40 Data reviewed: vital signs, nurses notes, lab test result(s). cp 15:40 Counseling: I had a detailed discussion with the patient and/or guardian regarding: the cp historical points, exam findings, and any diagnostic results supporting the discharge/admit diagnosis, lab results, to return to the emergency department if symptoms worsen or persist or if there are any questions or concerns that arise at home. ED course: VSS. Patient appears non-toxic and no signs of respiratory distress. Vomiting resolved. Will discharge to home for continued monitoring. 11/08 13:38 Order name: COVID-19 11/08 13:38 Order name: Flu; Complete Time: 15:30 11/08 15:30 Interpretation: Reviewed. 11/08 13:38 Order name: Strep; Complete Time: 15:05 11/08 15:05 Interpretation: Reviewed. 11/08 14:46 Order name: Urine Dipstick--Ancillary (enter results); Complete Time: 15:30 ss 11/08 14:46 Order name: Urine --Ancillary (enter results); Complete Time: 15:30 11/08 15:07 Order name: Throat Culture EDNY 11/08 13:38 Order name: Urine Dipstick-Ancillary (obtain specimen); Complete Time: 14:44 cp 11/08 13:38 Order name: Urine Test (obtain specimen); Complete Time: 14:44 cp 11/08 13:38 Order name: Document PUI#; Complete Time: 14:44 cp 11/08 13:38 Order name: Droplet/Contact Precautions; Complete Time: 14:44 cp 11/08 13:38 Order name: Labs collected and sent; Complete Time: 14:44 cp 11/08 13:38 Order name: Notify Health Dept [phone]/ ; Complete Time: 16:07 cp 11/08 13:38 Order name: O2 Per Protocol; Complete Time: 14:44 cp 11/08 15:30 Order name: PO challenge; Complete Time: 16:06 cp Administered Medications: 14:25 Drug: Zofran (Ondansetron) 4 mg Route: PO; ls4 15:23 Follow up: Response: No adverse reaction; Marked relief of symptoms ls4 Disposition: 11/09 13:26 Co-signature as Attending Physician, Davy Chang MD I agree with the assessment and tang plan of care. Disposition: 11/09/19 15:42 Discharged to Home. Impression: Acute upper respiratory infection, unspecified, Nausea and vomiting, Diarrhea, unspecified. - Condition is Stable. - Discharge Instructions: Diarrhea, Adult, Nausea and Vomiting, Adult, Upper Respiratory Infection, Adult. - Prescriptions for Zofran 4 mg Oral Tablet - take 1 tablet by ORAL route every 12 hours As needed; 20 tablet. Tessalon Perles 100 mg Oral Capsule - take 2 capsule by ORAL route every 8 hours As needed; 20 capsule. - Medication Reconciliation Form, Thank You Letter, Antibiotic Education, Prescription Opioid Use form. - Follow up: Private Physician; When: 2 - 3 days; Reason: Worsening of condition. - Problem is new. - Symptoms have improved. Signatures: Dispatcher [employer] EDDavy Collazo MD MD cha Smirch, Shelby, RN RN ss Davy Olivas PA PA Pao Shell, RN RN ls4 Corrections: (The following items were deleted from the chart) 11/08 16:19 15:42 11/09/2019 15:42 Discharged to Home. Impression: Acute upper respiratory ls4 infection, unspecified; Nausea and vomiting; Diarrhea, unspecified. Condition is Stable. Forms are Medication Reconciliation Form, Thank You Letter, Antibiotic Education, Prescription Opioid Use. Follow up: Private Physician; When: 2 - 3 days; Reason: Worsening of condition. Problem is new. Symptoms have improved. cp
--- NOTE | 2019-11-09 15:42 | ER ---
Nurse's Notes [facility] Name: Kirti Peña Age: 34 yrs Sex: Female : 1985 Arrival Date: 11/09/2019 Time: 11:47 Bed 20 Private MD: Diagnosis: Acute upper respiratory infection, unspecified;Nausea and vomiting;Diarrhea, unspecified Presentation: 11/08 12:15 Chief complaint: Patient states: N/V/D that began 24 hours ago and cough that began ss yesterday. Denies fever/ SOB. Coronavirus screen: Patient reports a cough. Patient denies shortness of breath or difficulty breathing. Patient denies measured and/or subjective temperature greater than 100.4F prior to today's visit. Patient denies travel on a cruise ship or to a country the [facility] currently lists as an affected area. Patient denies contact with known and/or suspected case of COVID-19. Ebola Screen: Patient denies exposure to infectious person. Patient denies travel to an Ebola-affected area in the 21 days before illness onset. Initial Sepsis Screen: Does the patient meet any 2 criteria? No. Patient's initial sepsis screen is negative. Does the patient have a suspected source of infection? No. Patient's initial sepsis screen is negative. Risk Assessment: Do you want to hurt yourself or someone else? Patient reports no desire to harm self or others. Onset of symptoms. Onset of symptoms was November 08, 2019. 12:15 Method Of Arrival: Ambulatory ss 12:15 Acuity: FRANCO 3 ss Triage Assessment: 13:00 General: Appears in no apparent distress. comfortable, Behavior is cooperative, bp appropriate for age, anxious. Pain: Denies pain. EENT: No deficits noted. Neuro: No deficits noted. Cardiovascular: No deficits noted. Respiratory: Reports cough that is. GI: Reports nausea, vomiting. : No signs and/or symptoms were reported regarding the genitourinary system. Derm: No signs and/or symptoms reported regarding the dermatologic system. Musculoskeletal: No deficits noted. Historical: - Allergies: 12:17 PENICILLINS; ss - PSHx: 12:17 ; surgery for ectopic ; ss - Immunization history:: Adult Immunizations up to date. - Social history:: Smoking status: Patient reports the use of cigarette tobacco products, smokes one-half pack cigarettes per day. Screenin:00 Abuse screen: Denies threats or abuse. Denies injuries from another. Nutritional bp screening: No deficits noted. Tuberculosis screening: No symptoms or risk factors identified. Fall Risk None identified. Assessment: 13:00 General: SEE TRIAGE NOTE. GI: Abdomen is non-distended. bp 14:00 Reassessment: Patient appears in no apparent distress at this time. Patient and/or ls4 family updated on plan of care and expected duration. Pain level reassessed. Patient is alert, oriented x 3, equal unlabored respirations, skin warm/dry/pink. Patient states feeling better. 14:00 Neuro: No deficits noted. Cardiovascular: No deficits noted. Respiratory: No deficits ls4 noted. GI: Bowel sounds present X 4 quads. 15:00 Reassessment: Patient appears in no apparent distress at this time. Patient and/or ls4 family updated on plan of care and expected duration. Pain level reassessed. Patient is alert, oriented x 3, equal unlabored respirations, skin warm/dry/pink. Patient denies pain at this time. Vital Signs: 12:15 BP 126 / 94; Pulse 79; Resp 15; Temp 98.5(TE); Pulse Ox 99% on R/A; Weight 108.86 kg; ss Height 5 ft. 10 in. (177.80 cm); 14:00 BP 128 / 74; Pulse 78; Resp 16; Temp 98.4(O); Pulse Ox 99% on R/A; Pain 0/10; ls4 15:00 BP 122 / 72; Pulse 71; Resp 18; Pulse Ox 99% on R/A; Pain 0/10; ls4 16:00 BP 129 / 80; Pulse 70; Resp 18; Pulse Ox 99% on R/A; Pain 0/10; ls4 12:15 Body Mass Index 34.44 (108.86 kg, 177.80 cm) ED Course: 11:47 Patient arrived in ED. as 12:17 Triage completed. ss 12:17 Arm band placed on left wrist. ss 13:00 Patient has correct armband on for positive identification. Bed in low position. Call bp light in reach. Side rails up X2. 13:09 Davy Olivas PA is PHCP. cp 13:09 Davy Chang MD is Attending Physician. cp 13:12 Cm Sharma, RN is Primary Nurse. bp 14:02 No apparent distress. ls4 14:02 No provider procedures requiring assistance completed. ls4 14:02 Patient did not have IV access during this emergency room visit. Patient maintains SpO2 ls4 saturation greater than 95% on room air. 15:05 Primary Nurse role handed off by Cm Sharma, VICKEY 15:23 Pao Lopez, RN is Primary Nurse. ls4 15:23 Throat Culture Sent. ls4 Administered Medications: 14:25 Drug: Zofran (Ondansetron) 4 mg Route: PO; ls4 15:23 Follow up: Response: No adverse reaction; Marked relief of symptoms ls4 Outcome: 15:42 Discharge ordered by MD. cp 16:18 Discharged to home ambulatory. ls4 16:18 Condition: good 16:18 Discharge instructions given to patient, Instructed on discharge instructions, follow up and referral plans. Demonstrated understanding of instructions, follow-up care, medications. 16:19 Patient left the ED. ls4 Addendum: 11/14/2019 15:55 Addendum: Other pt notified of negative COVID-19 swab results. Advised to remain in d m5 isolation until fever free for 3 days or at least 10 days from the time symptoms started. Pt also advised to continue to monitor symptoms and to return to the ED if symptoms worsen. Signatures: Deidra Tinsley RN RN dm5 Clarisse Moran Shelby, RN RN Davy Olivas PA PA cp Cm Sharma, VICKEY HURD bp Pao Lopez RN RN ls4 Corrections: (The following items were deleted from the chart) 11/08 21:58 16:08 Discharged to 4 ls4
[2019-11-09 16:28] VITALS: BP 126/94; TEMP 98.5; O2SAT 99
== END 2019-11-09 16:19 | disposition home or self-care (01) ==
LOC: ER 11:45
DX: J06.9 Acute upper respiratory infection, unspecified (principal); Z20.828 Contact with and (suspected) exposure to other viral communicable diseases; R19.7 Diarrhea, unspecified; F17.210 Nicotine dependence, cigarettes, uncomplicated; Z88.0 Allergy status to penicillin
CPT/HCPCS: 81003; 81025; 87070; 87081; 87804; 99284; U0002

== ENCOUNTER 2020-08-19 18:52 | Emergency (ER) | payer SELFPAY ==
--- OUTSIDE RECORDS SUMMARY | 2020-08-19 18:55 | XMS REPORT | Continuity of Care Document ---
:1985 Author Organization [facility] t Address [address] [place] [address] Care Team Providers Name Role Phone Tapan Chavez DO Attending Clinician Problems This patient has no known problems. Allergies, Adverse Reactions, Alerts This patient has no known allergies or adverse reactions. Medications This patient has no known medications. Procedures This patient has no known procedures. Encounters Start End Encounter Admission Attending Care Care Encounter Source Date/Time Date/Time Type Type Clinicians Facility Department ID 2020-08-13 2020-08-13 Patient NOLA Chavez [id number] 00:00:00 00:00:00 Outreach [facility] [id number] Tapan [facility] [id number] TRUDY [id number] Results This patient has no known results.
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
[2020-08-19 22:50] VITALS: TEMP 97.7
[2020-08-19 22:51] VITALS: BP 106/70; O2SAT 100
== END 2020-08-19 22:19 | disposition home or self-care (01) ==
LOC: ER 18:52
DX: S00.83XA Contusion of other part of head, initial encounter (principal); W50.0XXA Accidental hit or strike by another person, initial encounter; Y93.89 Activity, other specified; Y92.009 Unspecified place in unspecified non-institutional (private) residence as the place of occurrence of the external cause; Z88.0 Allergy status to penicillin; F17.210 Nicotine dependence, cigarettes, uncomplicated
CPT/HCPCS: 70450; 99283

== ENCOUNTER 2021-08-17 14:52 | Emergency (ER) | payer SELFPAY ==
--- OUTSIDE RECORDS SUMMARY | 2021-08-17 14:56 | XMS REPORT | Continuity of Care Document ---
:1985 Author Organization [facility] t Address [address] [place] [address] Care Team Providers Name Role Phone Tapan Chavez DO Attending Clinician Payers Payer Name Policy Type Policy Number Effective Date Expiration Date S ource Problems Condition Condition Condition Status Onset Resolution Last Treating Co mments Source Name Details Category Date Date Treatment Clinician Date Other Other Disease Active 2018-05 [facility] general general 05-30 [place] [facility] Branch contracept contracept joshua joshua management management History of History of Disease Active 2018-05 U nivers tubal tubal 05-30 ity of ligation ligation 00:00: [place] [id number] Medical Branch History of History of Disease Active 2018-05 Overview : Univers ectopic ectopic 05-30 [place] Obesity Obesity Disease Active 2018-05 Univers (BMI (BMI 1-06 ity of 30-39.9) 30-39.9) 00:00: [place] [facility] Allergies, Adverse Reactions, Alerts Allergy Allergy Status Severity Reaction(s) Onset Inactive Treating Comm ents Source Name Type Date Date Clinician Penicill Propensi Active Hives 2018-05 Univer s in ty to 05-30 ity of adverse 00:00: [place] reaction Medical s Branch Social History Social Habit Start Date Stop Date Quantity Comments Source History of tobacco 2014-03-30 Cigarette Smoker University of use 00:00:00 [place] [facility] [place] History [facility] University o f Alcohol Binge [place] [facility] History SDIN University o f Alcohol Std Drinks [facility] Cigarettes smoked 2019-04-06 2019-04-06 Univers ity of current (pack per 00:00:00 00:00:00 [facility] ) - Reported Branch Tobacco use and 2019-04-06 2019-04-06 Never used Universit y of exposure 00:00:00 00:00:00 [facility] Alcohol intake 2019-04-06 2019-04-06 Current drinker Unive rsity of 00:00:00 00:00:00 of alcohol [facility] (finding) Branch History SDOH 2019-03-30 2019-03-30 2 University o f Alcohol Frequency 00:00:00 00:00:00 [facility] Sex Ass[birth year] Universit y of 00:00:00 00:00:00 [facility] Smoking Status Start Date Stop Date Source Current every day smoker 2019-04-06 00:00:00 Uni versity of [facility] Medications Ordered Filled Start Stop Current Ordering Indication Dosage Frequency Signature Comments Components Source Medication Medication Date Date Medication? Clinician (SIG) Name Name No known No Univers medications ity of [facility] Procedures This patient has no known procedures. Encounters Start End Encounter Admission Attending Care Care Encounter Source Date/Time Date/Time Type Type Clinicians Facility Department ID 2020-08-13 2020-08-13 Patient Scott [facility] [id number] 00:00:00 00:00:00 Outreach [facility] [id number] [facility] [id number] PAVILLION [id number] 2020-08-13 2020-08-13 Patient Scott [facility] [id number] Univers 00:00:00 00:00:00 Outreach [facility] [id number] i [address] of [facility] [id number] [id number] Me dical 388 Branch Results This patient has no known results.
--- NOTE | 2021-08-17 15:47 | ER ---
Nurse's Notes [facility] Name: Kirti Peña Age: 36 yrs Sex: Female : 1985 Arrival Date: 08/17/2021 Time: 15:16 Bed 23 Private MD: Diagnosis: Other specified disorders of teeth and supporting structures Presentation: 08/17 15:21 Chief complaint: Patient states: "I have and abscess tooth and I was using old ab2 antibiotics but now I am out of them and the pain is worse and i'm nauseated and vomiting.". Coronavirus screen: Vaccine status: Patient reports receiving the 2nd dose of the covid vaccine. Client denies travel out of the [place] in the last 14 days. At this time, the client does not indicate any symptoms associated with coronavirus-19. Ebola Screen: Patient negative for fever greater than or equal to 101.5 degrees Fahrenheit, and additional compatible Ebola Virus Disease symptoms Patient denies exposure to infectious person. Patient denies travel to an Ebola-affected area in the 21 days before illness onset. No symptoms or risks identified at this time. Initial Sepsis Screen: Does the patient meet any 2 criteria? No. Patient's initial sepsis screen is negative. Does the patient have a suspected source of infection? No. Patient's initial sepsis screen is negative. Risk Assessment: Do you want to hurt yourself or someone else? Patient reports no desire to harm self or others. Onset of symptoms is unknown. 15:21 Method Of Arrival: Ambulatory ab2 15:21 Acuity: FRANCO 4 ab2 Triage Assessment: 15:23 General: Appears in no apparent distress. uncomfortable, Behavior is calm, cooperative, ab2 appropriate for age. Pain: Complains of pain in right jaw. EENT: Reports pain in right jaw. GI: Reports nausea, vomiting. Historical: - Allergies: 15:29 PENICILLINS; ld1 - Home Meds: 15:29 None [Active]; ld1 - PMHx: 15:29 None; ld1 - PSHx: 15:29 None; ld1 - Immunization history:: Adult Immunizations up to date, Client reports having NOT received the Covid vaccine. - Social history:: Smoking status: Patient denies any tobacco usage or history of. Screenin:29 Abuse screen: Denies threats or abuse. Denies injuries from another. Nutritional ld1 screening: No deficits noted. Tuberculosis screening: No symptoms or risk factors identified. Fall Risk None identified. Assessment: 15:27 General: Appears in no apparent distress. comfortable, Behavior is calm, cooperative, ld1 appropriate for age. Pain: Complains of pain in mouth Pain does not radiate. Pain currently is 9 out of 10 on a pain scale. Neuro: Level of Consciousness is awake, alert, obeys commands, Oriented to person, place, time, situation, Appropriate for age. Cardiovascular: Capillary refill < 3 seconds Patient's skin is warm and dry. Respiratory: Airway is patent Respiratory effort is even, unlabored, Respiratory pattern is regular, symmetrical. GI: Abdomen is flat, non-distended, Reports constipation. : No signs and/or symptoms were reported regarding the genitourinary system. EENT: No signs and/or symptoms were reported regarding the EENT system. Derm: No signs and/or symptoms reported regarding the dermatologic system. Musculoskeletal: No signs and/or symptoms reported regarding the musculoskeletal system. Vital Signs: 15:21 BP 131 / 84; Pulse 55; Resp 16; Temp 97.9(TE); Pulse Ox 100% ; Weight 99.79 kg; Height ab2 5 ft. 9 in. (175.26 cm); Pain 10/10; 15:21 Body Mass Index 32.49 (99.79 kg, 175.26 cm) ab2 ED Course: 15:16 Patient arrived in ED. am2 15:23 Triage completed. ab2 15:23 Arm band placed on right wrist. ab2 15:25 Essence Monreal, RN is Primary Nurse. ld1 15:29 Patient has correct armband on for positive identification. Placed in gown. Bed in low ld1 position. Call light in reach. Side rails up X2. Pulse ox on. NIBP on. Door closed. Noise minimized. 15:29 No provider procedures requiring assistance completed. ld1 15:38 Dana Moran F[facility]-C [facility]. kb 15:38 Davy Chang MD is Attending Physician. kb 15:51 Patient did not have IV access during this emergency room visit. ld1 Administered Medications: No medications were administered Outcome: 15:47 Discharge ordered by . kb 15:51 Discharged to home ambulatory. ld1 15:51 Condition: stable 15:51 Discharge instructions given to patient, Instructed on discharge instructions, follow up and referral plans. medication usage, Demonstrated understanding of instructions, follow-up care, medications, Prescriptions given X 2. 15:52 Patient left the ED. ld1 Signatures: Dana Moran, ARCHITECTURAL WOOD MODEL MAKER-C ARCHITECTURAL WOOD MODEL MAKER-CkEnid Rollins am2 Essence Monreal RN RN ld1 Romario Marie2
--- NOTE | 2021-08-17 15:47 | EDPHYS ---
Physician Documentation [facility] Name: Kirti Peña Age: 36 yrs Sex: Female : 1985 Arrival Date: 08/17/2021 Time: 15:16 Bed 23 Private MD: ED Physician Davy Chang HPI: 08/17 15:45 This 36 yrs old Female presents to ER via Ambulatory with complaints of Toothache, kb Abscess. 15:45 The patient presents with pain, redness, swelling. The problem is located in the upper kb right lateral incisor (#7) and upper right cuspid (#6) and upper right first bicuspid (#5). Onset: The symptoms/episode began/occurred 1 week(s) ago. Duration: The symptoms are continuous. Modifying factors: The symptoms are alleviated by nothing, the symptoms are aggravated by nothing. Associated signs and symptoms: Pertinent positives: pain, redness in area, swelling. Severity of symptoms: At their worst the symptoms were moderate, in the emergency department the symptoms are unchanged. The patient has experienced similar episodes in the past. The patient has not recently seen a physician. Pt reports tooth and gum pain that started a week ago. States she saw a dentist in May and was supposed to get this tooth filed and capped, but never got around to it. States it feels like an abscess that she had before. . Historical: - Allergies: 15:29 PENICILLINS; ld1 - Home Meds: 15:29 None [Active]; ld1 - PMHx: 15:29 None; ld1 - PSHx: 15:29 None; ld1 - Immunization history:: Adult Immunizations up to date, Client reports having NOT received the Covid vaccine. - Social history:: Smoking status: Patient denies any tobacco usage or history of. ROS: 15:44 Constitutional: Negative for fever, chills, and weight loss. kb 15:44 ENT: Positive for Gum pain Teeth pain 15:44 All other systems are negative. Exam: 15:44 Constitutional: This is a well developed, well nourished patient who is awake, alert, kb and in no acute distress. Head/Face: Normocephalic, atraumatic. Cardiovascular: Regular rate and rhythm with a normal S1 and S2. No gallops, murmurs, or rubs. No pulse deficits. Respiratory: Respirations even and unlabored. No increased work of breathing. Talking in full sentences Skin: Warm, dry with normal turgor. Normal color. MS/ Extremity: Pulses equal, no cyanosis. Neurovascular intact. Full, normal range of motion. Neuro: Awake and alert, GCS 15, oriented to person, place, time, and situation. Moves all extremities. Normal gait. Psych: Awake, alert, with orientation to person, place and time. Behavior, mood, and affect are within normal limits. 15:44 ENT: Dental exam: gum swelling, that is mild, specifically in the upper right first bicuspid (#5), upper right cuspid (#6) and upper right lateral incisor (#7), pain, that is moderate, specifically in the upper right first bicuspid (#5), upper right cuspid (#6) and upper right lateral incisor (#7). Vital Signs: 15:21 BP 131 / 84; Pulse 55; Resp 16; Temp 97.9(TE); Pulse Ox 100% ; Weight 99.79 kg; Height ab2 5 ft. 9 in. (175.26 cm); Pain 10/10; 15:21 Body Mass Index 32.49 (99.79 kg, 175.26 cm) ab2 MDM: 15:38 Patient medically screened. kb 15:43 Data reviewed: vital signs, nurses notes. Data interpreted: Pulse oximetry: on room air kb is 100 %. Interpretation: normal. Counseling: I had a detailed discussion with the patient and/or guardian regarding: the historical points, exam findings, and any diagnostic results supporting the discharge/admit diagnosis, the need for outpatient follow up, a dentist, to return to the emergency department if symptoms worsen or persist or if there are any questions or concerns that arise at home. Administered Medications: No medications were administered Disposition Summary: 08/17/21 15:47 Discharge Ordered Location: Home kb Condition: Stable kb Diagnosis - Other specified disorders of teeth and supporting structures kb Followup: kb - With: Emergency Department - When: As needed - Reason: Worsening of condition Followup: kb - With: Private Physician - When: 2 - 3 days - Reason: Recheck today's complaints, Continuance of care, Re-evaluation by your physician Discharge Instructions: - Discharge Summary Sheet kb - Dental Pain, [id number] kb - Dental Abscess, [id number] kb Forms: - Medication Reconciliation Form kb - Thank You Letter kb - Antibiotic Education kb - Prescription Opioid Use kb Prescriptions: - Clindamycin HCl 300 mg Oral Capsule - take 1 capsule by ORAL route every 6 hours for 10 days; 40 capsule; Refills: 0, kb Product Selection Permitted - Diclofenac Sodium 75 mg Oral tablet,delayed release (DR/EC) - take 1 tablet by ORAL route 2 times per day As needed; 30 tablet; Refills: 0, kb Product Selection Permitted Addendum: 08/21/2021 07:05 Co-signature as Attending Physician, Davy Chang MD I agree with the assessment and c bryant plan of care. Signatures: Dana Moran, FOOD PROCESSING SCIENTIST-C FOOD PROCESSING SCIENTIST-Ckb Davy Chang MD MD cha Dibbern, Lauren RN RN ld1
[2021-08-17 16:41] VITALS: BP 131/84; TEMP 97.9; O2SAT 100
== END 2021-08-17 15:52 | disposition home or self-care (01) ==
LOC: ER 14:52
DX: K08.89 Other specified disorders of teeth and supporting structures (principal); Z88.0 Allergy status to penicillin
CPT/HCPCS: 99283

== ENCOUNTER 2022-04-26 08:27 | Emergency (ER) | payer SELFPAY ==
--- OUTSIDE RECORDS SUMMARY | 2022-04-26 08:31 | XMS REPORT | Continuity of Care Document ---
:1985 Author Organization [facility] t Address [address] [place] [address] Care Team Providers Name Role Phone Carlos Chavez DO Attending Clinician Payers Payer Name Policy Type Policy Number Effective Date Expiration Date S ource Problems Condition Condition Condition Status Onset Resolution Last Treating Co mments Source Name Details Category Date Date Treatment Clinician Date Other Other Disease Active 2018-05 [facility] general general 05-30 [place] advice [facility] [place] [facility] Branch contracept contracept joshua joshua management management History of History of Disease Active 2018-05 U nivers tubal tubal 05-30 ity of ligation ligation 00:00: [place] [id number] [facility] [place] History of History of Disease Active 2018-05 Overview : [facility] ectopic ectopic 05-30 [place] 00:: [place] Obesity Obesity Disease Active 2018-05 Univers (BMI (BMI 05-30 ity of 30-39.9) 30-39.9) 00:00: [address] Allergies, Adverse Reactions, Alerts Allergy Allergy Status Severity Reaction(s) Onset Inactive Treating Comm ents Source Name Type Date Date Clinician Penicill Propensi Active Hives 2018-05 Univer s in ty to 05-30 ity of adverse 00:00: [place] reaction [facility] s [facility] Social History Social Habit Start Date Stop Date Quantity Comments Source History of tobacco 2014-03-30 Cigarette Smoker University of use 00:00:00 [place] [facility] [place] History [facility] University o f Alcohol Binge [place] [facility] History [facility] University o f Alcohol Std Drinks [facility] Cigarettes smoked 2019-04-06 2019-04-06 Univers ity of current (pack per 00:00:00 00:00:00 [facility]) - Reported Branch Tobacco use and 2019-04-06 2019-04-06 Never used Universit y of exposure 00:00:00 00:00:00 [facility] Alcohol intake 2019-04-06 2019-04-06 Current drinker Unive rsity of 00:00:00 00:00:00 of alcohol [facility] (finding) Branch History SDOH 2019-03-30 2019-03-30 2 University o f Alcohol Frequency 00:00:00 00:00:00 [facility] Sex Ass[birth year] Universit y of 00:00:00 00:00:00 [facility] Smoking Status Start Date Stop Date Source Current every day smoker 2019-04-06 00:00:00 Uni versity of [facility] Medications Ordered Filled Start Stop Current Ordering Indication Dosage Frequency Signature Comments Components Source Medication Medication Date Date Medication? Clinician (SIG) Name Name No known No Univers medications ity of [facility] Procedures This patient has no known procedures. Encounters Start End Encounter Admission Attending Care Care Encounter Source Date/Time Date/Time Type Type Clinicians Facility Department ID 2020-08-13 2020-08-13 Patient Scott [facility] [id number] 00:00:00 00:00:00 [facility] [place] [id number] [facility] [id number] PAVILLION [id number] 2020-08-13 2020-08-13 Patient Scott [facility] [id number] Univers 00:00:00 00:00:00 Outreach PRIMARY [id number] [facility] [place] [id number] [place] [id number] Me dical 388 Branch Results This patient has no known results.
[2022-04-26] MEDS ORDERED: IBUPROFEN 200 MG TAB PO ONE (09:18)
[2022-04-26 09:46] LABS: SARS-COV-2 RT PCR NEGATIVE (NEGATIVE)
--- NOTE | 2022-04-26 10:49 | RAD REPORT ---
EXAM DESCRIPTION: [place] Single View04/26/2022 10:30 am CLINICAL HISTORY: Cough COMPARISON: none FINDINGS: The lungs appear clear of acute infiltrate. The heart is normal size IMPRESSION: No acute abnormalities displayed
--- NOTE | 2022-04-26 11:09 | ER ---
Nurse's Notes [facility] Name: Kirti Peña Age: 37 yrs Sex: Female : 1985 Arrival Date: 04/26/2022 Time: 08:30 Bed 10 Private MD: Diagnosis: Viral infection, unspecified Presentation: 04/26 09:01 Chief complaint: Patient states: Cough, congestion, fever, body aches x2 days. iw Coronavirus screen: Vaccine status: Patient reports receiving the 2nd dose of the covid vaccine. Client denies travel out of the [place] in the last 14 days. Ebola Screen: Patient negative for fever greater than or equal to 101.5 degrees Fahrenheit, and additional compatible Ebola Virus Disease symptoms Patient denies exposure to infectious person. Patient denies travel to an Ebola-affected area in the 21 days before illness onset. Initial Sepsis Screen: Does the patient meet any 2 criteria? No. Patient's initial sepsis screen is negative. Does the patient have a suspected source of infection? No. Patient's initial sepsis screen is negative. Risk Assessment: Do you want to hurt yourself or someone else? Patient reports no desire to harm self or others. Onset of symptoms was April 24, 2022. 09:01 Method Of Arrival: Ambulatory iw 09:01 Acuity: FRANCO 4 iw Triage Assessment: 09:02 General: Appears in no apparent distress. Behavior is calm, cooperative. Pain: iw Complains of pain in head, chest, abdomen, right arm, left arm, right leg and left leg Pain does not radiate. Pain currently is 9 out of 10 on a pain scale. Quality of pain is described as aching. Respiratory: Reports cough that is productive, Airway is patent Breath sounds are clear Onset: The symptoms/episode began/occurred gradually, the patient has mild shortness of breath. 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 - Social history:: Smoking status: Patient reports the use of cigarette tobacco products, smokes one-half pack cigarettes per day. Screenin:30 Abuse screen: Denies threats or abuse. Denies injuries from another. Nutritional iw screening: No deficits noted. Tuberculosis screening: No symptoms or risk factors identified. Fall Risk None identified. Assessment: 10:00 General: Appears in no apparent distress. Behavior is calm, cooperative. General: iw Reports feeling ill for fatigue for. Neuro: Level of Consciousness is awake, alert, obeys commands, Oriented to person, place, time, situation, Moves all extremities. Full function. Cardiovascular: Patient's skin is warm and dry. Rhythm is regular. Respiratory: Respiratory effort is even, unlabored, Respiratory pattern is regular. Respiratory: Reports cough that is Airway. Derm: Skin is intact, is healthy with good turgor. Musculoskeletal: Range of motion: intact in all extremities. Vital Signs: 09:01 BP 119 / 82; Pulse 93; Resp 18; Temp 99.5; Pulse Ox 96% ; Weight 97.07 kg; Height 5 ft. iw 9 in. (175.26 cm); Pain 9/10; 09:01 Body Mass Index 31.60 (97.07 kg, 175.26 cm) iw ED Course: 08:30 Patient arrived in ED. rg4 08:38 Juanito Olivarez PA is PHCP. jmm 08:38 Davy Chang MD is Attending Physician. jmm 09:00 Strep Sent. rs5 09:01 COVID-19/FLU A+B Sent. rs5 09:02 Triage completed. iw 09:02 Arm band placed on right wrist. iw 09:03 Covid, Strept. rs5 09:08 Leydi Ascencio, RN is Primary Nurse. iw 10:00 Patient has correct armband on for positive identification. iw 10:32 Chest Single View XRAY In Process Unspecified. EDMS 11:32 No provider procedures requiring assistance completed. Patient did not have IV access iw during this emergency room visit. Administered Medications: 09:26 Drug: Ibuprofen 600 mg Route: PO; iw 10:30 Follow up: Response: No adverse reaction iw 11:32 Drug: Decadron (dexamethasone) 10 mg Route: IM; Site: right ventrogluteal; iw 11:40 Follow up: Response: No adverse reaction iw Medication: 10:00 VIS not applicable for this client. iw Outcome: 11:09 Discharge ordered by MD. garduno 11:33 Discharged to home ambulatory. iw 11:33 Condition: good 11:33 Discharge instructions given to patient, Instructed on discharge instructions, follow up and referral plans. Demonstrated understanding of instructions, follow-up care, Prescriptions given X 2. 11:34 Patient left the ED. mm9 Signatures: Dispatcher [employer] EDMS Juanito Olivarez PA PA jmm Williams, Irene, RN RN Catalina Houston 4 Sherlyn Moran mm9 Vipin Boone rs5 Corrections: (The following items were deleted from the chart) 04/27 07:22 12/ 11:33 Discharge instructions given to patient, Instructed on discharge iw instructions, follow up and referral plans. Demonstrated understanding of instructions, follow-up care, iw
--- NOTE | 2022-04-26 11:09 | EDPHYS ---
Physician Documentation [facility] Name: Kirti Peña Age: 37 yrs Sex: Female : 1985 Arrival Date: 04/26/2022 Time: 08:30 Bed 10 Private MD: ED Physician Davy Chang HPI: 04/26 08:48 This 37 yrs old Female presents to ER via Ambulatory with complaints of Shortness Of jmm Breath, Body Aches, Vomiting. 08:48 The patient has shortness of breath at rest. This is a 37 year old female with no [facility] chronic medical conditions that presents to the ED with complaints of cough, sinus congestion, weakness. . 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 - Social history:: Smoking status: Patient reports the use of cigarette tobacco products, smokes one-half pack cigarettes per day. ROS: 08:48 Constitutional: Positive for body aches, chills. jmm 08:48 ENT: Positive for sore throat. 08:48 Respiratory: Positive for cough. 08:48 All other systems are negative. Exam: 08:48 Constitutional: This is a well developed, well nourished patient who is awake, alert, jmm and in no acute distress. Head/Face: atraumatic. Eyes: EOMI, no conjunctival erythema appreciated ENT: Moist Mucus Membranes Neck: Trachea midline, Supple Chest/axilla: Normal chest wall appearance and motion. Cardiovascular: Regular rate and rhythm. No edema appreciated Respiratory: Normal respirations, no respiratory distress appreciated Abdomen/GI: Non distended Back: Normal ROM Skin: General appearance color normal MS/ Extremity: Moves all extremities, no obvious deformities appreciated, no edema noted to the lower extremities Neuro: Awake and alert Psych: Behavior is normal, Mood is normal, Patient is cooperative and pleasant Vital Signs: 09:01 BP 119 / 82; Pulse 93; Resp 18; Temp 99.5; Pulse Ox 96% ; Weight 97.07 kg; Height 5 ft. iw 9 in. (175.26 cm); Pain 02/01; 09:01 Body Mass Index 31.60 (97.07 kg, 175.26 cm) iw MDM: 08:48 Patient medically screened. [facility] 11:08 Data reviewed: vital signs, nurses notes. Counseling: I had a detailed discussion with [facility] the patient and/or guardian regarding: the historical points, exam findings, and any diagnostic results supporting the discharge/admit diagnosis, the need for outpatient follow up, to return to the emergency department if symptoms worsen or persist or if there are any questions or concerns that arise at home. 11:32 ED course: Patient is alert and non toxic in appearance in the ED, no signs of resp jmm distress. Advised to follow up with pcp and otherwise given strict return precautions. Patient understood an agrees with the plan of care. . 04/26 08:49 Order name: COVID-19/FLU A+B; Complete Time: 09:48 [facility] 04/26 08:49 Order name: Strep; Complete Time: 09:48 [facility] 04/26 09:48 Order name: Throat Culture [facility] 04/26 09:48 Order name: Chest Single View XRAY; Complete Time: 10:50 [facility] Administered Medications: 09:26 Drug: Ibuprofen 600 mg Route: PO; iw 10:30 Follow up: Response: No adverse reaction 11:32 Drug: Decadron (dexamethasone) 10 mg Route: IM; Site: right ventrogluteal; iw 11:40 Follow up: Response: No adverse reaction Disposition: 04/27 08:05 Co-signature as Attending Physician, Davy Chang MD I agree with the assessment and tang plan of care. Disposition Summary: 04/26/22 11:09 Discharge Ordered Location: Home [facility] Condition: Stable [facility] Diagnosis - Viral infection, unspecified [facility] Followup: jmm - With: Private Physician - When: 2 - 3 days - Reason: Recheck today's complaints, Continuance of care, Re-evaluation by your physician Discharge Instructions: - Discharge Summary Sheet jmm - Influenza, Adult jmm Forms: - Medication Reconciliation Form [facility] - Thank You Letter jm - Antibiotic Education m - Prescription Opioid Use [facility] - Work release form iw Prescriptions: - Tamiflu 75 mg Oral Capsule - take 1 tablet by ORAL route every 12 hours for 5 days; 10 tablet; Refills: 0, [facility] Product Selection Permitted - promethazine-DM - take 10 milliliter by ORAL route every 4-6 hours As needed; 200 milliliter; jmm Refills: 0, Product Selection Permitted Signatures: Dispatcher [employer] Davy Dempsey MD MD cha Mickail, Joel, PA PA jmm Williams, Irene, RN RN iw
[2022-04-26] MEDS ORDERED: dexAMETHasone 10 MG/ML VIAL ONE (11:25)
[2022-04-26 11:46] VITALS: BP 119/82; TEMP 99.5; O2SAT 96
== END 2022-04-26 11:34 | disposition home or self-care (01) ==
LOC: ER 08:27
DX: B34.9 Viral infection, unspecified (principal); Z20.822 Contact with and (suspected) exposure to COVID-19
CPT/HCPCS: 0240U; 71045; 87070; 87081; 96372; 99284; J1100

== ENCOUNTER 2022-06-02 22:44 | Emergency (ER) | payer SELFPAY ==
--- OUTSIDE RECORDS SUMMARY | 2022-06-02 22:46 | XMS REPORT | Continuity of Care Document ---
:[address] [facility] t Address [address] [place] [address] Care Team Providers Name Role Phone Carlos [...] [place] and advice and advice 00 [place] dical for [facility] Branch contracept contracept joshua joshua management management History of History of Disease Active 2018-05 U nivers tubal tubal 05-30 ity of ligation ligation 00:00: [place] [id number] [facility] [place] History of History of Disease Active 2018-05 Overview : Univers ectopic ectopic 05-30 [place] Obesity Obesity Disease Active 2018-05 Univers (BMI (BMI 05-30 ity of 30-39.9) 30-39.9) 00:00: [address] Allergies, Adverse Reactions, Alerts Allergy Allergy Status Severity Reaction(s) Onset Inactive Treating Comm ents Source Name Type Date Date Clinician Penicill Propensi Active Hives 2018-05 Univer s in ty to 05-30 ity of adverse 00:00: [place] reaction Medical s Branch Social History Social Habit Start Date Stop Date Quantity Comments Source History of tobacco 2014-03-30 Cigarette Smoker University of use 00:00:00 [place] [facility] [place] History [facility] University o f Alcohol Binge [place] [facility] History [facility] University o f Alcohol Std Drinks [facility] Cigarettes smoked 2019-04-06 2019-04-06 Univers ity of current (pack per 00:00:00 00:00:00 [facility]) - Reported Branch Tobacco use and 2019-04-06 2019-04-06 Never used Universit y of exposure 00:00:00 00:00:00 [facility] Alcohol intake 2019-04-06 2019-04-06 Current drinker Unive rsity of 00:00:00 00:00:00 of alcohol [facility] (finding) Branch History SDOH 2019-03-30 2019-03-30 2 University o f Alcohol Frequency 00:00:00 00:00:00 [facility] Sex Ass[birth year] At [birth year] Universit y of 00:00:00 00:00:00 [facility] Smoking Status Start Date Stop Date Source Current every day smoker 2019-04-06 00:00:00 Uni versity of [facility] Medications Ordered Filled Start Stop Current Ordering Indication Dosage Frequency Signature Comments Components Source Medication Medication Date Date Medication? Clinician (SIG) Name Name No known No Univers medications ity of [facility] Procedures This patient has no known procedures. Encounters Start End Encounter Admission Attending Care Care Encounter Source Date/Time Date/Time Type Type Clinicians Facility Department ID 2020-08-13 2020-08-13 Patient Scott [facility] [id number] 00:00:00 00:00:00 [id number] [facility] [id number] PAVILLION [id number] 2020-08-13 2020-08-13 Patient Scott [facility] [id number] Univers 00:00:00 00:00:00 [facility] PRIMARY [id number] [id number] [phone] Me dical 388 Branch Results This patient has no known results.
[2022-06-02 23:27] LABS: Urine Blood Trace-intact (Negative); Urine Glucose Negative (Negative); Urine Protein Negative (Negative); Urine Specific Gravity 1.025 (1.005-1.030); Urine pH 5.5 (5.0-7.0)
[2022-06-02] MEDS ORDERED: KETOROLAC 30 MG/ML INJ ONE (23:30)
[2022-06-03 00:35] LABS: Urine Specific Gravity/Preg 1.025 (1.005-1.030)
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
[2022-06-03] MEDS ORDERED: CYCLOBENZAPRINE 10 MG TAB ONE (01:10)
[2022-06-03] MEDS ORDERED: HYDROCODONE/APAP 7.5/325 MG TAB ONE (01:11)
[2022-06-03 01:26] VITALS: TEMP 97.5; O2SAT 100
[2022-06-03 01:27] VITALS: BP 121/86
--- NOTE | 2022-06-03 14:10 | RAD REPORT ---
EXAM DESCRIPTION: RAD - Ribs Left - 06/03/2022 12:02 am CLINICAL HISTORY: 37 years Female left lateral ribs COMPARISON: None TECHNIQUE: 4 images of the left ribs were obtained. FINDINGS: Suspected fracture lateral left sixth rib. No additional fractures seen. Normal bony mineralization. No erosive or lytic lesions seen. IMPRESSION: Suspected fracture lateral left sixth rib. 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 The interpreting radiologist is fully responsible for the content of the report.
== END 2022-06-03 01:20 | disposition home or self-care (01) ==
LOC: ER 22:44
DX: S22.32XA Fracture of one rib, left side, initial encounter for closed fracture (principal); F17.210 Nicotine dependence, cigarettes, uncomplicated; Z88.0 Allergy status to penicillin
CPT/HCPCS: 81003; 81025; 96372; 99283

== ENCOUNTER 2022-07-16 10:21 | Emergency (ER) | payer SELFPAY ==
--- OUTSIDE RECORDS SUMMARY | 2022-07-16 10:24 | XMS REPORT | Continuity of Care Document ---
:[address] [facility] t Address [address] [place] [address] Care Team Providers Name Role Phone Carlos [...] [place] and advice and advice 00 [place]ical for [facility] [place] Branch contracept contracept joshua joshua management management History of History of Disease Active 2018-05 U nivers tubal tubal 05-30 ity of ligation ligation 00:00: [place] [address] [facility] [place] History of History of Disease Active 2018-05 Overview : Univers ectopic ectopic 05-30 [place]:: [place] Obesity Obesity Disease Active 2018-05 Univers (BMI (BMI 05-30 ity of 30-39.9) 30-39.9) 00:00: [address] Allergies, Adverse Reactions, Alerts Allergy Allergy Status Severity Reaction(s) Onset Inactive Treating Comm ents Source Name Type Date Date Clinician Penicill Propensi Active Hives 2018-05 Univer s in ty to 05-30 ity of adverse 00:00: [place] reaction Medical s Branch Social History Social Habit Start Date Stop Date Quantity Comments Source History of tobacco 2014-03-30 Cigarette Smoker University of use 00:00:00 [place] [facility] [place] History [facility] University o f Alcohol Binge [place] [facility] al Branch History [facility] University o f Alcohol Std Drinks [facility] Cigarettes smoked 2019-04-06 2019-04-06 Univers ity of current (pack per 00:00:00 00:00:00 [facility]) - Reported Branch Tobacco use and 2019-04-06 2019-04-06 Never used Universit y of exposure 00:00:00 00:00:00 [facility] Alcohol intake 2019-04-06 2019-04-06 Current drinker Unive rsity of 00:00:00 00:00:00 of alcohol [facility] (finding) Branch History SDOH 2019-03-30 2019-03-30 2 University o f Alcohol Frequency 00:00:00 00:00:00 [facility] Sex Assigned At [birth year] Universit [...] Facility Department ID 2020-08-13 2020-08-13 Patient Scott IATHUY [id number] 00:00:00 00:00:00 [facility] [place] [id number] [facility] [id number] PAVILLION [id number] 2020-08-13 2020-08-13 Patient Scott RUST [id number] Univers 00:00:00 00:00:00 Outreach PRIMARY [id number] [facility] [place] [id number] [id number] Me dical 388 Branch Results This patient has no known results.
[2022-07-16] MEDS ORDERED: KETOROLAC 30 MG/ML INJ ONE (10:40)
--- NOTE | 2022-07-16 11:07 | RAD REPORT ---
EXAM DESCRIPTION: RAD - Tib Fib Right - 07/16/2022 10:59 am CLINICAL HISTORY: achilles tendon injury COMPARISON: No comparisons FINDINGS/IMPRESSION: No acute fracture. No malalignment. No significant focal degenerative changes.
--- NOTE | 2022-07-16 12:20 | EDPHYS ---
Physician Documentation [facility] Name: Kirti Peña Age: 37 yrs Sex: Female : 1985 Arrival Date: 07/16/2022 Time: 10:24 Bed 12 Private MD: ED Physician Davy Chang HPI: 07/16 12:14 This 37 yrs old Female presents to ER via Wheelchair with complaints of Fall Injury, m Leg Pain. 12:14 Onset: The symptoms/episode began/occurred gradually. Is a 37-year-old female that [facility] presents emerged part with complaints of right lower leg pain after falling approximately 3 steps on the stairs. Patient states she felt a pop. Complains of numbness and pain going down the right lower extremity. Pain is most pronounced just beneath the calf. Denies other injury. 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 - Social history:: Smoking status: Patient reports the use of cigarette tobacco products, smokes one-half pack cigarettes per day. ROS: 12:14 Constitutional: Negative for fever, chills, and weight loss, Cardiovascular: Negative jmm for chest pain, palpitations, and edema, Respiratory: Negative for shortness of breath, cough, wheezing, and pleuritic chest pain. 12:14 MS/extremity: Positive for swelling. 12:14 All other systems are negative. Exam: 12:14 Constitutional: This is a well developed, well nourished patient who is awake, alert, jmm and in no acute distress. Head/Face: atraumatic. Eyes: EOMI, no conjunctival erythema appreciated ENT: Moist Mucus Membranes Neck: Trachea midline, Supple Chest/axilla: Normal chest wall appearance and motion. Cardiovascular: Regular rate and rhythm. No edema appreciated Respiratory: Normal respirations, no respiratory distress appreciated Abdomen/GI: Non distended Back: Normal ROM Skin: General appearance color normal 12:14 Musculoskeletal/extremity: Pain elicited on palpation of the right lower leg beneath the gastroc, pain is elicited on plantarflexion, full dorsalis pedis pulse appreciated, compartments are soft, neurovascular intact. 12:14 Skin: Appearance: Color: normal in color. 12:14 Neuro: Orientation: is normal, Mentation: is normal, Memory: is normal. 12:14 Psych: Behavior/mood is pleasant, cooperative. Vital Signs: 10:31 BP 106 / 59; Pulse 69; Resp 18; Temp 97.4; Pulse Ox 100% ; Weight 104.33 kg; Height 5 5 ft. 9 in. (175.26 cm); Pain 10/10; 10:31 Body Mass Index 33.96 (104.33 kg, 175.26 cm) 5 MDM: 10:37 Patient medically screened. [facility] 12:17 Data reviewed: vital signs, nurses notes. I considered the following discharge [facility] prescriptions or medication management in the emergency department Medications were administered in the Emergency Department. See MAR. Independent interpretation of the following test(s) in the Emergency Department X-Ray: My interpretation is No fracture. Counseling: I had a detailed discussion with the patient and/or guardian regarding: the historical points, exam findings, and any diagnostic results supporting the discharge/admit diagnosis, radiology results, the need for outpatient follow up, to return to the emergency department if symptoms worsen or persist or if there are any questions or concerns that arise at home. 07/16 10:34 Order name: Tib Fib Right XRAY [facility] 07/16 11:08 Order name: RAD; Complete Time: 11:21 EDAZ 07/16 11:26 Order name: Misc. Order: ortho boot; Complete Time: 11:49 [facility] Administered Medications: 10:36 Drug: Ketorolac 30 mg Route: IM; Site: left deltoid; [facility] 12:34 Follow up: Response: No adverse reaction ap3 Disposition Summary: 07/16/22 12:20 Discharge Ordered Location: Home jm Condition: Stable jmm Diagnosis - Strain of other muscle(s) and tendon(s) at lower leg level, right leg jm Followup: [facility] - With: Sebastian Myers MD - When: 2 - 3 days - Reason: Recheck today's complaints, Continuance of care, Re-evaluation by your physician Discharge Instructions: - Discharge Summary Sheet jmm - Deep Vein Thrombosis jmm - Muscle Strain, [id number] jm Forms: - Medication Reconciliation Form [facility] - Thank You Letter jmm - Antibiotic Education jmm - Prescription Opioid Use jm Prescriptions: - Diclofenac Sodium 75 mg Oral Tablet Sustained Release - take 1 tablet by ORAL route 2 times per day; 30 tablet; Refills: 0, Product [facility] Selection Permitted - orphenadrine citrate 100 mg Oral Tablet Sustained Release - take 1 tablet by ORAL route 2 times per day As needed; 20 tablet; Refills: 0, [facility] Product Selection Permitted Signatures: Dispatcher [employer] Juanito Mayes PA PA jmm Rees, Jessica, RN RN jh5 Enid Cortes RN ap3
--- NOTE | 2022-07-16 12:20 | ER ---
Nurse's Notes [facility] Name: Kirti Peña Age: 37 yrs Sex: Female : 1985 Arrival Date: 07/16/2022 Time: 10:24 Bed 12 Private MD: Diagnosis: Strain of other muscle(s) and tendon(s) at lower leg level, right leg Presentation: 07/16 10:31 Chief complaint: Patient states: I was walking down my stairs this morning and lost my jh5 balance or stepped wrong and fell down 3-4 steps but caught myself and all my pain is in the back of my right calf. I heard a pop and I can walk on it but it's numb. Coronavirus screen: Vaccine status: Patient reports receiving the 2nd dose of the covid vaccine. Client denies travel out of the [place] in the last 14 days. Ebola Screen: Patient negative for fever greater than or equal to 101.5 degrees Fahrenheit, and additional compatible Ebola Virus Disease symptoms Patient denies exposure to infectious person. Patient denies travel to an Ebola-affected area in the 21 days before illness onset. Initial Sepsis Screen: Does the patient meet any 2 criteria? No. Patient's initial sepsis screen is negative. Does the patient have a suspected source of infection? No. Patient's initial sepsis screen is negative. Risk Assessment: Do you want to hurt yourself or someone else? Patient reports no desire to harm self or others. 10:31 Method Of Arrival: Wheelchair 5 10:31 Acuity: FRANCO 3 jh5 12:12 Onset of symptoms was July 16, 2022. ap3 Triage Assessment: 10:33 General: Appears uncomfortable, obese, well groomed, well developed, Behavior is calm, jh5 cooperative, appropriate for age. Pain: Complains of pain in right leg. 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 - Social history:: Smoking status: Patient reports the use of cigarette tobacco products, smokes one-half pack cigarettes per day. Screenin:11 [facility] ED Fall Risk Assessment (Adult) History of falling in the last 3 months, ap3 including since admission Yes- single mechanical fall (1 pt) Confusion or Disorientation No (0 pts). Abuse screen: Denies threats or abuse. Nutritional screening: No deficits noted. Tuberculosis screening: No symptoms or risk factors identified. Vital Signs: 10:31 BP 106 / 59; Pulse 69; Resp 18; Temp 97.4; Pulse Ox 100% ; Weight 104.33 kg; Height 5 [facility] ft. 9 in. (175.26 cm); Pain 10/10; 10:31 Body Mass Index 33.96 (104.33 kg, 175.26 cm) [facility] ED Course: 10:24 Patient arrived in ED. as 10:26 Juanito Olivarez PA is PHCP. [facility] 10:26 Davy Chang MD is Attending Physician. [facility] 10:33 Triage completed. [facility] 10:33 Arm band placed on right wrist. [facility] 11:26 Enid Cortes, VCIKEY is Primary Nurse. ap3 12:12 Patient has correct armband on for positive identification. Adult w/ patient. ap3 12:12 No provider procedures requiring assistance completed. Patient did not have IV access ap3 during this emergency room visit. 12:19 Sebastian Myers MD is Referral Physician. [facility] Administered Medications: 10:36 Drug: Ketorolac 30 mg Route: IM; Site: left deltoid; [facility] 12:34 Follow up: Response: No adverse reaction ap3 Medication: 12:12 VIS not applicable for this client. ap3 Outcome: 12:12 Condition: good ap3 12:20 Discharge ordered by . [facility] 12:33 Discharge instructions given to patient, Instructed on discharge instructions, follow ap3 up and referral plans. medication usage, Demonstrated understanding of instructions, follow-up care, medications, Prescriptions given X 2. 12:33 Discharged to home ambulatory, with family. ap3 12:40 Patient left the ED. Signatures: Juanito Oliavrez PA PA jmm Martinez, Amelia as Smirch, Shelby, RN RN Enid Cortes RN RN ap3 Susu Stout RN RN [facility]
[2022-07-16 13:11] VITALS: BP 106/59; TEMP 97.4; O2SAT 100
== END 2022-07-16 12:40 | disposition home or self-care (01) ==
LOC: ER 10:21
DX: S86.811A Strain of other muscle(s) and tendon(s) at lower leg level, right leg, initial encounter (principal)
CPT/HCPCS: 96372; 99283